=== PATIENT | male | born 1935 | race Caucasian/White ===

== ENCOUNTER → 2016-09-25 | Outpatient (CLI) | payer BC ==
[~2016-09-25] MED LIST: ACET325T96 PO; ALPR-411 PO; ASCO500T16 PO; B-COTAB18 PO; CALC-214 PO; CALCIUM/MAGNESIUM PO; CHOL1TAB PO; COEN1CAP46 PO; DXY100 PO; FLEC50TA20 PO; METO25TA3 PO; SAW160TA PO; VITA400C15 PO; ZNTT/150 PO
--- NOTE | 2016-09-25 11:38 | DIAGNOSTIC IMAGING REPORT ---
C-SPINE ROUTINE 4 OR 5 VIEWS CLINICAL HISTORY: Right upper extremity paresthesias COMPARISON STUDY: 11/16/2010, 02/09/2010 FINDINGS: The prevertebral soft tissues are normal. No fractures or subluxations are visualized. No calcifications are felt to be secondary to atherosclerotic carotid calcification. There are degenerative changes at the C5-6 and C6-7 levels. IMPRESSION: 1. Degenerative changes the C5-6 and C6-7 levels 2. No fractures subluxations or destructive lesions are visualized Electronically signed by: Deshuan Piña M.D. 09/25/2016 11:36 AM Dictated Date/Time: 09/25/2016 11:35 AM
== END | disposition home or self-care (01) ==
LOC: C.RAD1850 11:08
PROVIDERS: ATTEND Internal Medicine
DX: R20.2 Paresthesia of skin (principal)

== ENCOUNTER → 2016-11-04 | Outpatient (CLI) | payer BC ==
--- NOTE | 2016-11-04 16:01 | DIAGNOSTIC IMAGING REPORT ---
RIGHT RIBS UNILATERAL WITH PA CHEST CLINICAL HISTORY: COUGH/ R35.0 Right dyspnea COMPARISON STUDY: None FINDINGS: Negative right ribs. Negative chest. IMPRESSION: Negative study Electronically signed by: Kevin Pennington M.D. 11/04/2016 4:00 PM Dictated Date/Time: 11/04/2016 3:59 PM
[2016-11-04 16:54] LABS: URINE APPEARANCE CLEAR (CLEAR); URINE BILIRUBIN NEG (NEG); URINE COLOR YELLOW; URINE NITRITE NEG (NEG); URINE SPECIFIC GRAVITY 1.014 (1.000-1.030); UROBILINOGEN NEG (NEG)
[2016-11-04 16:58] LABS: MANUAL MICROSCOPIC REQUIRED? NO; REVIEW REQ? NO
== END | disposition home or self-care (01) ==
LOC: C.RADBC 15:34
PROVIDERS: ATTEND Internal Medicine Geriatric Medicine
DX: R05 Cough (principal); R35.0 Frequency of micturition

== ENCOUNTER → 2017-02-18 | Outpatient (CLI) | payer BC ==
[2017-02-18 11:13] LABS: HEMATOCRIT 43.3 % (42-52); MEAN CELL VOLUME 95.6 fL (80-100); MEAN CORPUSCULAR HEMOGLOBIN 29.6 pg (25-34); MEAN CORPUSCULAR HGB CONC 30.9 g/dl (32-36); MEAN PLATELET VOLUME 12.1 fL (7.4-10.4); PLATELET COUNT 145 K/uL (130-400); RED BLOOD COUNT 4.53 M/uL (4.7-6.1); WHITE BLOOD COUNT 4.06 K/uL (4.8-10.8)
[2017-02-18 11:34] LABS: ALT/SGPT 22 U/L (12-78); BLOOD UREA NITROGEN 22 mg/dl (7-18); BUN/CREATININE RATIO 22.1 (10-20); CALCIUM 9.4 mg/dl (8.5-10.1); CARBON DIOXIDE 31 mmol/L (21-32); CHLORIDE 108 mmol/L (98-107); CHOLESTEROL 162 mg/dl (0-200); CREATININE 0.98 mg/dl (0.60-1.40); GLUCOSE 86 mg/dl (70-99); POTASSIUM 4.1 mmol/L (3.5-5.1); SODIUM 144 mmol/L (136-145); TRIGLYCERIDES 101 mg/dl (0-150); VERY LOW DENSITY LIPOPROT CALC 20 mg/dl
[2017-02-18 11:46] LABS: AST/SGOT 17 U/L (15-37); CHOLESTEROL/HDL RATIO 2.5; HDL CHOLESTEROL 64 mg/dl; LDL CHOLESTEROL CALCULATED 78 mg/dl
== END | disposition home or self-care (01) ==
LOC: C.LABBC 07:37
PROVIDERS: ATTEND Internal Medicine
DX: I10 Essential (primary) hypertension (principal); I48.0 Paroxysmal atrial fibrillation; I49.3 Ventricular premature depolarization; R35.0 Frequency of micturition

== ENCOUNTER 2017-05-14 09:27 | Emergency (ER) | payer BC ==
[~2017-05-14] VITALS: Ht 170.2 cm; Wt 75.2 kg
[~2017-05-14 09:27] MED LIST changes: -ACET325T96 PO; -ALPR-411 PO; -CALCIUM/MAGNESIUM PO
[2017-05-14 09:36] VITALS: Ht 170.2 cm; Wt 75.2 kg
--- NOTE | 2017-05-14 10:06 | DIAGNOSTIC IMAGING REPORT ---
CHEST ONE VIEW PORTABLE CLINICAL HISTORY: 81 years-old Male presenting with irregular heart beat. TECHNIQUE: Portable upright AP view of the chest was obtained. COMPARISON: 06/10/2016. FINDINGS: Atherosclerosis of the aortic arch. Chronic silhouette normal in size. Prominence of retrocardiac vascular markings, unchanged. Lungs and pleural spaces clear. Osseous structures normal. Upper abdomen normal. IMPRESSION: 1. No acute cardiopulmonary disease. Electronically signed by: Carl Suh M.D. 05/14/2017 10:05 AM Dictated Date/Time: 05/14/2017 10:04 AM
[2017-05-14 10:16] LABS: HEMATOCRIT 44.5 % (42-52); MEAN CELL VOLUME 94.3 fL (80-100); MEAN CORPUSCULAR HEMOGLOBIN 30.1 pg (25-34); MEAN CORPUSCULAR HGB CONC 31.9 g/dl (32-36); MEAN PLATELET VOLUME 11.5 fL (7.4-10.4); PLATELET COUNT 152 K/uL (130-400); RED BLOOD COUNT 4.72 M/uL (4.7-6.1); WHITE BLOOD COUNT 3.34 K/uL (4.8-10.8)
[2017-05-14 10:26] LABS: PARTIAL THROMBOPLASTIN RATIO 1.1; PROTHROMBIN TIME (PATIENT) 10.9 SECONDS (9.0-12.0)
[2017-05-14] MEDS ORDERED: CALCIUM/MAGNESIUM PO (10:30)
[2017-05-14] MEDS ORDERED: ALPR-411 PO (10:32)
[2017-05-14 10:33] LABS: BUN/CREATININE RATIO 18.2 (10-20); CALCIUM 9.1 mg/dl (8.5-10.1); CREATININE 0.89 mg/dl (0.60-1.40); POTASSIUM 4.2 mmol/L (3.5-5.1)
[2017-05-14] MEDS ORDERED: ACET325T96 PO (10:33)
[2017-05-14 11:25] VITALS: BP 161/91; PULSE 87; TEMP 36.8; O2SAT 95
--- NOTE | 2017-05-14 11:26 | EMERGENCY ROOM VISIT NOTE ---
History Report prepared by Carol: Robyn Andujar Under the Supervision of: Dr. Max Mccord D.O. First contact with patient: 10:58 Chief Complaint: IRREGULAR HEARTBEAT Stated Complaint: IRREGULAR HEARTBEAT, SOB Nursing Triage Summary: triage not; pt reports "i felt like i have had an irregular heart beat for weeks." pt continues "everytime i eat or drink something it goes to gas." pt states "sometimes where i breathe i have a stabbing pain in my chest and sometimes i have a heaviness." History of Present Illness The patient is an 81 year old male who presents to the Emergency Room with complaints of an intermittent irregular heartbeat that began a week and a half ago. The patient reports a history of atrial fibrillation. He states that he intermittently feels palpitations or his heart skipping a beat. The patient additionally reports intermittent heaviness in his chest. The patient notes increased gas when eating or drinking anything. He reports a low-grade fever and a post nasal drip. Yesterday, he reports a stabbing pain in the left side of his chest. Source of History: patient Onset: week and a half ago Position: other Quality: other (irregular heartbeat) Timing: intermittent Associated Symptoms: + fevers (low-grade), + chest pain (heaviness, stabbing ) Note: Associated Symptoms: post nasal drip, increased gas with eating and drinking, palpitations, skipping a beat Review of Systems See HPI for pertinent positives & negatives. A total of 10 systems reviewed and were otherwise negative. Past Medical & Surgical Medical Problems: (1) Anxiety (2) Appendicitis (3) Arthritis (4) Asthma (5) Atrial fibrillation (6) Atrial fibrillation with RVR (7) Cholecystectomy (8) Gastroesophageal reflux disease (9) Total replacement of hip Family History No significant family history Social History Smoking Status: Former Smoker Alcohol Use: none Drug Use: none Marital Status: Housing Status: lives with significant other Occupation Status: retired Current/Historical Medications Scheduled Acetaminophen Tab (Tylenol), 325 MG PO UD Ascorbic Acid (Ascorbic Acid), 500 MG PO TID B-Complex Vitamins (Vitamin B Complex), 1 TAB PO BID Cholecalciferol (Thera-D 4000), 4,000 UNITS PO QAM Coenzyme Q10 (Ubidecarenone) (Coq-10 100 mg), 100 MG PO QAM Flecainide (Tambocor), 50 MG PO Q12 Metoprolol Succinate (Toprol Xl), 12.5 MG PO HS Ranitidine (Zantac), 150 MG PO BID Saw [place] (Serenoa Repens) (Saw [place]), 160 MG PO BID Tocopheryl Acet,Dl-Alpha (Vitamin E), 400 INTER.UNIT PO 1200 [Calcium/Magnesium ], 1 TSP PO BID Scheduled PRN Alprazolam (Xanax), 0 PO Q6H PRN for Anxiety/Agitation Allergies Coded Allergies: Codeine (Verified Allergy, Unknown, 05/14/17) Latex1 -Allergic Contact Dermititis (Verified Allergy, Unknown, WELTS, RASH, 05/14/17) Morphine (Verified Allergy, Unknown, DELIRIUM, 05/14/17) Lactose. (Verified Adverse Reaction, Intermediate, GI SYMPTOMS, 05/14/17) Oxycodone (Verified Adverse Reaction, Intermediate, N/V, 05/14/17) Wheat (Verified Adverse Reaction, Intermediate, GI SYMPTOMS, 05/14/17) Penicillins (Verified Adverse Reaction, Unknown, DELIRIOUS, 05/14/17) Sulfa Drugs (Verified Adverse Reaction, Unknown, DELIRIOUS, 05/14/17) Physical Exam Vital Signs Date Time Temp Pulse Resp B/P (MAP) Pulse Ox O2 Delivery O2 Flow Rate FiO2 05/14/17 10:58 51 05/14/17 10:57 53 20 95 05/14/17 09:44 96 Room Air 05/14/17 09:36 36.8 56 18 152/75 96 Room Air Physical Exam CONSTITUTIONAL/VITAL SIGNS: Reviewed / noted above. GENERAL: Non-toxic in appearance. INTEGUMENTARY: Warm, dry, and [place]. HEAD: Normocephalic. EYES: without scleral icterus or trauma. ENT/OROPHARYNX: clear and moist. LYMPHADENOPATHY/NECK: Is supple without lymphadenopathy or meningismus. RESPIRATORY: Lungs clear and equal. CARDIOVASCULAR: Regular rate and slightly irregular rhythm. GI/ABDOMEN: Soft and nontender. No organomegaly or pulsatile mass. No rebound or guarding. Normal bowel sounds. EXTREMITIES: Warm and well perfused. BACK: No CVA tenderness. NEUROLOGICAL: Intact without focal deficits. PSYCHIATRIC: normal affect. MUSCULOSKELETAL: Normally developed with good muscle tone. TRIAGE NURSING DOCUMENTATION REVIEWED. Medical Decision & Procedures ER Provider Diagnostic Interpretation: X ray results and stated below per my interpretation and radiology interpretation. CHEST ONE VIEW PORTABLE CLINICAL HISTORY: 81 years-old Male presenting with irregular heart beat. TECHNIQUE: Portable upright AP view of the chest was obtained. COMPARISON: 06/10/2016. FINDINGS: Atherosclerosis of the aortic arch. Chronic silhouette normal in size. Prominence of retrocardiac vascular markings, unchanged. Lungs and pleural spaces clear. Osseous structures normal. Upper abdomen normal. IMPRESSION: 1. No acute cardiopulmonary disease. Electronically signed by: Carl Suh M.D. 05/14/2017 10:05 AM Dictated Date/Time: 05/14/2017 10:04 AM Laboratory Results 05/14/17 09:35 05/14/17 09:35 Test 05/14/17 09:35 05/14/17 10:03 Red Blood Count 4.72 M/uL (4.7-6.1) Mean Corpuscular Volume 94.3 fL (80-100) Mean Corpuscular Hemoglobin 30.1 pg (25-34) Mean Corpuscular Hemoglobin Concent 31.9 g/dl (32-36) RDW Standard Deviation 46.3 fL (36.4-46.3) RDW Coefficient of Variation 13.5 % (11.5-14.5) Mean Platelet Volume 11.5 fL (7.4-10.4) Prothrombin Time 10.9 SECONDS (9.0-12.0) Prothromb Time International Ratio 1.0 (0.9-1.1) Activated Partial Thromboplast Time 27.3 SECONDS (21.0-31.0) Partial Thromboplastin Ratio 1.1 Anion Gap 3.0 mmol/L (3-11) Est Creatinine Clear Calc Drug Dose 61.9 ml/min Estimated GFR () 93.6 Estimated GFR (Non- 80.8 BUN/Creatinine Ratio 18.2 (10-20) Calcium Level 9.1 mg/dl (8.5-10.1) Total Bilirubin 0.6 mg/dl (0.2-1) Aspartate Amino Transf (AST/SGOT) 21 U/L (15-37) Alanine Aminotransferase (ALT/SGPT) 22 U/L (12-78) Alkaline Phosphatase 50 U/L (45-117) Total Creatine Kinase 63 U/L (39-308) Creatine Kinase MB 0.6 ng/ml (0.5-3.6) Creatine Kinase MB Ratio 1.0 (0-3.0) Total Protein 7.3 gm/dl (6.4-8.2) Albumin 3.7 gm/dl (3.4-5.0) Globulin 3.6 gm/dl (2.5-4.0) Albumin/Globulin Ratio 1.0 (0.9-2) Bedside Troponin I < 0.030 ng/ml (0-0.045) Laboratory results as stated above per my review. ECG Indication: palpitations Rate (beats per minute): 61 Rhythm: normal sinus Findings: PAC, no acute ischemic change, no ectopy ED Course 1058: Previous medical records were reviewed. The patient was evaluated in room A10. A complete history and physical examination was performed. I discussed the exam findings with him and I discussed the treatment plan. He verbalized complete understanding and agreement. The patient is ready to go home shortly. Medical Decision Differentials considered include acute myocardial infarction, acute coronary syndrome, myocarditis, pericarditis, pericardial effusions /tamponade, esophageal perforation, thoracic aortic dissection, pulmonary embolism, pneumonia, pneumothorax, pancreatitis, shingles, acute cholecystitis, and perforated abdominal viscus. This is an 81-year-old male who presents to the ED with a chief complaint of palpitations. The patient states that he has had the symptoms for about a week and a half. He states that he skips a beat periodically. He also reported having a fever last night. He states that his temperature was 99.4. The patient denies any other symptoms. Denies any shortness of breath, chest pains , palpitations, recent illness. He has a normal exam. His CBC, complete metabolic panel and troponin are negative. Chest x-ray did not show acute disease. EKG shows a sinus rhythm with a rate of 61 with PACs. The patient was told results the test. He is felt to be stable for discharge. He was referred back to his PCP for recheck of his blood pressure and continuation of evaluation for his PACs. He has seen Dr. Trujillo for PAC's in the past. Medication Reconcilliation Current Medication List: was personally reviewed by me Impression Primary Impression: Palpitations Additional Impression: Premature atrial complexes Scribe Attestation The scribe's documentation has been prepared under my direction and personally reviewed by me in its entirety. I confirm that the note above accurately reflects all work, treatment, procedures, and medical decision making performed by me. Departure Information Referrals No Doctor, Assigned (PCP) Patient Instructions My [facility] Additional Instructions Your EKG today shows premature atrial contractions. Talk to your doctor about this. Problem Qualifiers
== END 2017-05-14 11:25 | disposition home or self-care (01) ==
LOC: C.EDB 09:29 → C.EDA 11:25
DX: R00.2 Palpitations (principal); I49.1 Atrial premature depolarization; I48.91 Unspecified atrial fibrillation; F41.9 Anxiety disorder, unspecified; J45.909 Unspecified asthma, uncomplicated; M19.90 Unspecified osteoarthritis, unspecified site; K21.9 Gastro-esophageal reflux disease without esophagitis; Z90.49 Acquired absence of other specified parts of digestive tract; Z96.649 Presence of unspecified artificial hip joint; Z87.891 Personal history of nicotine dependence; Z79.899 Other long term (current) drug therapy

== ENCOUNTER 2017-09-14 09:17 | Emergency (ER) | payer BC, OTHER ==
[~2017-09-14] VITALS: Ht 170.2 cm; Wt 74.5 kg
[~2017-09-14 09:17] MED LIST changes: +ACET325T96 PO; +ALPR-411 PO; -CALC-214 PO; +CALCIUM/MAGNESIUM PO; -DXY100 PO; +PRED20TA PO
[2017-09-14 09:26] VITALS: TEMP 36.9; Ht 170.2 cm; Wt 74.5 kg
[2017-09-14] MEDS ORDERED: BENZONATATE 100MG CAP PO ONE (09:45)
[2017-09-14] MEDS ORDERED: IBUPROFEN 200 MG TAB PO STA (09:45)
[2017-09-14] MEDS ORDERED: COUGH DROP (SUGAR FREE) LOZ 24 LOZ/1 BOX PO STA (09:45)
[2017-09-14] MEDS ORDERED: ACETAMINOPHEN 500 MG TAB PO STA (09:45)
[2017-09-14] MEDS ORDERED: COEN1TAB3 PO (10:25)
[2017-09-14] MEDS ORDERED: VTME400 PO (10:25)
[2017-09-14 10:28] VITALS: BP 123/57; PULSE 57; O2SAT 94
--- NOTE | 2017-09-14 10:29 | DIAGNOSTIC IMAGING REPORT ---
CHEST ONE VIEW PORTABLE HISTORY: cough COMPARISON: Chest 05/14/2017. FINDINGS: The lungs are clear. Cardiac silhouette is normal in size. No pleural effusions. No pneumothorax. IMPRESSION: No acute process. Electronically signed by: Lazaro Mendoza M.D. 09/14/2017 10:27 AM Dictated Date/Time: 09/14/2017 10:27 AM
[2017-09-14 10:45] LABS: INFLUENZA B ANTIGEN Neg for Influ B (NEG)
[2017-09-14] MEDS ORDERED: BENZ100C18 PO (11:59)
--- NOTE | 2017-09-14 12:01 | EMERGENCY ROOM VISIT NOTE ---
History Report prepared by Carol: Jimena Vargas Under the Supervision of: Dr. Todd Ramirez M.D. First contact with patient: 09:35 Chief Complaint: FLU LIKE SX Stated Complaint: SORE THROAT,GLANDS ARE SORE, WHEEZING,COUGH History of Present Illness The patient is an 82 year old white male with a past medical history of atrial fibrillation, anxiety, asthma, and GERD who presents to the ED with a cc of worsening flu-like symptoms beginning a week ago. Positive sore throat, cough, swollen glands, and wheezing. Negative blood thinners. He notes that he took Tylenol last night with no relief. He reports that he has been having difficulty sleeping because of his cough. He reports that it has made him wheezy and he has been taking his inhaler with little relief. The patient reports going into a walk in clinic yesterday and getting a Z-Pack. Source of History: patient Onset: a week ago Position: other (global) Quality: other (flu-like) Timing: worsening Modifying Factors (Relieving): tylenol, other (inhaler) Associated Symptoms: + sorethroat, + cough Note: The patient complains of swollen glands and wheezing. Review of Systems See HPI for pertinent positives and negatives. A total of ten systems were reviewed and were otherwise negative. Past Medical & Surgical Medical Problems: (1) Anxiety (2) Appendicitis (3) Arthritis (4) Asthma (5) Atrial fibrillation (6) Atrial fibrillation with RVR (7) Cholecystectomy (8) Gastroesophageal reflux disease (9) Total replacement of hip Family History No significant family history Social History Smoking Status: Former Smoker Alcohol Use: none Drug Use: none Marital Status: Housing Status: lives with significant other Occupation Status: retired Current/Historical Medications Scheduled Ascorbic Acid (Ascorbic Acid), 500 MG PO TID B-Complex Vitamins (Vitamin B Complex), 1 TAB PO BID Benzonatate (Tessalon Perles), 100 MG PO TID Cholecalciferol (Thera-D 4000), 4,000 UNITS PO QAM Coenzyme Q10 (Ubidecarenone) (Coenzyme Q10), 100 MG PO DAILY Flecainide (Tambocor), 50 MG PO Q12 Metoprolol Succinate (Toprol Xl), 12.5 MG PO HS Saw [place] (Serenoa Repens) (Saw [place]), 160 MG PO BID Tocopheryl Acet,Dl-Alpha (Vitamin E/Dl-Alpha), 400 UNITS PO DAILY Scheduled PRN Ranitidine (Zantac), 150 MG PO BID PRN for Indigestion Allergies Coded Allergies: Codeine (Verified Allergy, Unknown, 09/14/17) Latex1 -Allergic Contact Dermititis (Verified Allergy, Unknown, WELTS, RASH, 09/14/17) Morphine (Verified Allergy, Unknown, DELIRIUM, 09/14/17) Lactose. (Verified Adverse Reaction, Intermediate, GI SYMPTOMS, 09/14/17) Oxycodone (Verified Adverse Reaction, Intermediate, N/V, 09/14/17) Wheat (Verified Adverse Reaction, Intermediate, GI SYMPTOMS, 09/14/17) Penicillins (Verified Adverse Reaction, Unknown, DELIRIOUS, 09/14/17) Sulfa Drugs (Verified Adverse Reaction, Unknown, DELIRIOUS, 09/14/17) Physical Exam Vital Signs Date Time Temp Pulse Resp B/P (MAP) Pulse Ox O2 Delivery O2 Flow Rate FiO2 09/14/17 10:28 57 18 123/57 94 Room Air 09/14/17 09:26 36.9 66 20 111/62 94 Room Air Physical Exam GENERAL: Awake, alert, well-appearing, NAD HENT: Normocephalic, atraumatic. Posterior pharynx clear. False maxillary teeth. EYES: Normal conjunctiva. Sclera non-icteric. NECK: Supple. No nuchal rigidity. FROM. No stridulous. RESPIRATORY: CTAB, no rhonchi, wheezing, crackles CARDIAC: RRR, no MRG ABDOMEN: Soft, NTND, BS+ MSK: No chest wall TTP, no LE edema NEURO: GCS 15, CN 2-12 intact, moves all 4s on command SKIN: No rash or jaundice noted. Medical Decision & Procedures ER Provider Diagnostic Interpretation: Radiology results as stated below per my review and radiologist interpretation: CHEST ONE VIEW PORTABLE HISTORY: cough COMPARISON: Chest 05/14/2017. FINDINGS: The lungs are clear. Cardiac silhouette is normal in size. No pleural effusions. No pneumothorax. IMPRESSION: No acute process. Electronically signed by: Lazaro Mendoza M.D. 09/14/2017 10:27 AM Dictated Date/Time: 09/14/2017 10:27 AM Laboratory Results Test 09/14/17 10:15 09/14/17 11:13 Influenza Type A Antigen Neg for Influ A (NEG) Influenza Type B Antigen Neg for Influ B (NEG) Bedside Glucose 90 mg/dl (70-99) Laboratory results reviewed by me Medications Administered Medications (Trade) Dose Ordered Sig/Osvaldo Route Start Time Stop Time Status Last Admin Dose Admin Ibuprofen (Advil Tab) 400 mg NOW STAT PO 09/14/17 09:45 09/14/17 09:46 DC 09/14/17 10:25 400 MG Acetaminophen (Tylenol Tab) 1,000 mg NOW STAT PO 09/14/17 09:45 09/14/17 09:46 DC 09/14/17 10:25 1,000 MG Menthol (Nice [place]) 1 marco NOW STAT PO 09/14/17 09:45 09/14/17 09:46 DC 09/14/17 10:25 1 MARCO Benzonatate (Tessalon Perles Cap) 100 mg NOW ONCE PO 09/14/17 09:45 09/14/17 09:46 DC 09/14/17 10:26 100 MG ED Course 0939: The patient was evaluated in room B10. A complete history and physical exam was performed. 1144: I reevaluated the patient. Discussed results and discharge instructions: he verbalized understanding and agreement. The patient is ready for discharge. Medical Decision The patient is an 82 year old white male with a past medical history of atrial fibrillation, anxiety, asthma, and GERD who presents to the ED with a cc of worsening flu-like symptoms beginning a week ago. Etiologies such as viral syndrome, tonsillitis, streptococcal pharyngitis, mononucleosis, peritonsillar abscess, retropharyngeal abscess, otitis, pneumonia , influenza, as well as others were entertained. Patient was seen and evaluated the bedside. Patient is a prior history of A. fib for which he takes flecainide. Patient does not take any blood thinning medications. He is elected not to use those medicines. Patient was complaining of some sore throat. I did discuss with the patient that completely blood work with and a whole lot of value given the patient is very well-appearing and a stable vital signs. Patient did have a chest x-ray. Patient's chest x-ray shows stable cardiomegaly no overt signs of infection. Patient did have a repeat blood sugar as he was concerned that he checked it this morning it was greater than 180. Repeat value < 100. I did offer him a short course of steroids however he declined. Patient was given Tessalon Perles and Cepacol. Patient did state the Tessalon did help. Patient was given a prescription for Tessalon Perles. I believe the patient is suitable for outpatient follow-up and treatment at this time. Patient was given strict follow-up, discharge, and return precautions. All questions were answered. Patient was deemed suitable for outpatient follow-up at this time. Patient agreed with the plan of care and was safely discharged home. The chart was completed utilizing [employer] voice recognition software. Grammatical errors, random word insertions, pronoun errors, and incomplete sentences are an occasional consequence of this system due to software limitations, ambient noise, and hardware issues. Any formal questions or concerns about the content, text, or information contained within the body of this dictation should be directly addressed to the physician for clarification. Medication Reconcilliation Current Medication List: was personally reviewed by me Blood Pressure Screening Patient's blood pressure: Normal blood pressure Blood pressure disposition: Did not require urgent referral Impression Primary Impression: Sore throat Additional Impression: URI (upper respiratory infection) Scribe Attestation The scribe's documentation has been prepared under my direction and personally reviewed by me in its entirety. I confirm that the note above accurately reflects all work, treatment, procedures, and medical decision making performed by me. Departure Information Dispostion Home / Self-Care Prescriptions Benzonatate (TESSALON PERLES) 100 Mg Cap 100 MG PO TID, #15 CAP Prov: oTdd Ramirez M.D. 09/14/17 Referrals No Doctor, Assigned (PCP) Forms HOME CARE DOCUMENTATION FORM, IMPORTANT VISIT INFORMATION Patient Instructions ED Upper Resp Infec No Abx Tx, My [facility], Sore Throat - [facility], Sore Throats Self Care Additional Instructions Please return to the emergency department if you have worsening or recurrent symptoms not amenable to at-home treatment. Please call for a follow-up appointment with her primary care physician. Please take your medications as prescribed. If you have other concerns and/or complaints please feel free to also call your primary care physician's office or return the ED for further evaluation, management, and treatment. You may try additional [id number] remedies for your sore throat. You may take an occasional Motrin or Advil. You may take motrin 200 mg every 6 hours for sore throat. You may take tylenol 650 mg every 6 hours as needed for pain. Take your medications as prescribed. If taking an antibiotic consider taking a probiotic and/or eating yogurt, but at the least, please take with food as it can cause upset stomach. If culture results are not available at discharge, if they are positive for concern of infection, you will be informed of the results as soon as they are available. If you were seen between 11pm and 7AM all radiology reads will be re-read by our in house staff. If any major discrepancies are discovered, you will be notified. You have been examined and treated today on an emergency basis only. This is not a substitute for, or an effort to provide, complete comprehensive medical care. It is impossible to recognize and treat all injuries or illnesses in a single emergency department visit. It is therefore important that you follow up closely with [facility], your PCP, and/or your specialist(s). Call as soon as possible for an appointment. Thank you for your time and consideration. I look forward to speaking with you again soon. Please don't hesitate to call us if you have any questions. Problem Qualifiers Additional Impression: URI (upper respiratory infection) URI type: acute pharyngitis Pharyngitis/tonsillitis etiology: unspecified etiology Qualified Codes: J02.9 - Acute pharyngitis, unspecified
== END 2017-09-14 12:12 | disposition home or self-care (01) ==
LOC: C.EDB 09:20
DX: J02.9 Acute pharyngitis, unspecified (principal); J45.909 Unspecified asthma, uncomplicated; I48.91 Unspecified atrial fibrillation; Z90.49 Acquired absence of other specified parts of digestive tract; Z96.649 Presence of unspecified artificial hip joint; Z79.899 Other long term (current) drug therapy

== ENCOUNTER 2017-09-17 00:11 | Emergency (ER) | payer OTHER ==
[~2017-09-17] VITALS: Ht 170.2 cm; Wt 74.7 kg
[~2017-09-17 00:11] MED LIST changes: -ACET325T96 PO; -ALPR-411 PO; +BENZ100C18 PO; -CALCIUM/MAGNESIUM PO; -COEN1CAP46 PO; +COEN1TAB3 PO; -VITA400C15 PO; +VTME400 PO
[2017-09-17 00:15] VITALS: TEMP 36.9; Ht 170.2 cm; Wt 74.7 kg
[2017-09-17 00:33] VITALS: O2SAT 92
[2017-09-17] MEDS ORDERED: METHYLPREDNISOLONE 125 MG VIAL IV STA (00:49)
[2017-09-17] MEDS ORDERED: ALBUT/IPRATROP 3MG/0.5MG NEB 3 ML VIAL INH STA (00:49)
--- NOTE | 2017-09-17 00:51 | EMERGENCY ROOM VISIT NOTE ---
History Report prepared by Carol: Connie Vaughan Under the Supervision of: Dr. Renetta Raygoza D.O. First contact with patient: 00:21 Chief Complaint: RESPIRATORY PROBLEMS Stated Complaint: WHEEZING,SHORT OF BREATH,COUGHING UP WHITE MUCOUS History of Present Illness The patient is an 82 year old male who presents to the Emergency Room with complaints of a constant cough beginning about two weeks ago. The patient reports wheezing and coughing up white mucus when he eats food. He denies any fever. The patient was seen in the ED on Friday, three days ago, and was put on 20 mg of prednisone for this symptoms. He reports taking a dose of his prednisone about three hours ago. He notes he has not been able to sleep for the past couple days because his cough is keeping him up. The patient has not been to his PCP for these symptoms. He reports using and inhaler with minimal relief. The patient denies any history of COPD or asthma. The patient recently had a pulmonary function test which was unremarkable. He has a history of chronic rhinitis. The patient started taking flecainide three years ago for his atrial fibrillation. The patient also takes Metoprolol for his high blood pressure. Source of History: patient Onset: two weeks ago Position: other (generalized) Quality: other (cough) Timing: constant Associated Symptoms: + cough, No fevers Review of Systems See HPI for pertinent positives & negatives. A total of 10 systems reviewed and were otherwise negative. Past Medical & Surgical Medical Problems: (1) Anxiety (2) Appendicitis (3) Arthritis (4) Asthma (5) Atrial fibrillation (6) Atrial fibrillation with RVR (7) Cholecystectomy (8) Gastroesophageal reflux disease (9) Total replacement of hip Family History No significant family history Social History Smoking Status: Former Smoker Alcohol Use: none Drug Use: none Marital Status: Housing Status: lives with significant other Occupation Status: retired Current/Historical Medications Scheduled Ascorbic Acid (Ascorbic Acid), 500 MG PO TID B-Complex Vitamins (Vitamin B Complex), 1 TAB PO BID Benzonatate (Tessalon Perles), 100 MG PO TID Cholecalciferol (Thera-D 4000), 4,000 UNITS PO QAM Coenzyme Q10 (Ubidecarenone) (Coenzyme Q10), 100 MG PO DAILY Flecainide (Tambocor), 50 MG PO Q12 Metoprolol Succinate (Toprol Xl), 12.5 MG PO HS Prednisone (Prednisone), 1 TAB PO DAILY [employer] ([place]) ([employer]), 160 MG PO BID Tocopheryl Acet,Dl-Alpha (Vitamin E/Dl-Alpha), 400 UNITS PO DAILY Scheduled PRN Ranitidine (Zantac), 150 MG PO BID PRN for Indigestion Allergies Coded Allergies: Codeine (Verified Allergy, Unknown, 09/17/17) Latex1 -Allergic Contact Dermititis (Verified Allergy, Unknown, WELTS, RASH, 09/17/17) Morphine (Verified Allergy, Unknown, DELIRIUM, 09/17/17) Lactose. (Verified Adverse Reaction, Intermediate, GI SYMPTOMS, 09/17/17) Oxycodone (Verified Adverse Reaction, Intermediate, N/V, 09/17/17) Wheat (Verified Adverse Reaction, Intermediate, GI SYMPTOMS, 09/17/17) Penicillins (Verified Adverse Reaction, Unknown, DELIRIOUS, 09/17/17) Sulfa Drugs (Verified Adverse Reaction, Unknown, DELIRIOUS, 09/17/17) Physical Exam Vital Signs Date Time Temp Pulse Resp B/P (MAP) Pulse Ox O2 Delivery O2 Flow Rate FiO2 09/17/17 02:40 70 20 135/58 95 Room Air 09/17/17 01:53 75 20 144/59 94 Room Air 09/17/17 00:35 66 22 125/55 95 Room Air 09/17/17 00:33 95 Room Air 09/17/17 00:33 92 Room Air 09/17/17 00:28 71 09/17/17 00:15 36.9 75 16 143/80 93 Room Air Physical Exam General: The patient appears in no respiratory distress but he has a persistent cough HEENT: Head - normocephalic and atraumatic Pupils are equal, round, and reactive to light. Extraocular eye muscles are intact, and sclera are anicteric. Nose - moist nasal mucosa without discharge. Mouth - moist buccal mucosa. Oropharynx is nonerythematous and there is no tonsillar exudate or edema noted. Neck: Supple; no JVD, nuchal rigidity, cervical lymphadenopathy. Heart: Regular rate and rhythm. There is a normal S1 and S2 with no murmurs, clicks, or gallops appreciated. Lungs: Inspiratory and expiratory wheezes in all lung vigil. No rales or rhonchi. Abdomen: Soft, completely nontender, nondistended, with good bowel sounds. There are no palpable pulsatile masses or hepatosplenomegaly. There is no guarding, rigidity, or rebound noted. Extremities: No evidence of cyanosis, clubbing, or edema. There are easily palpable peripheral pulses. Skin: warm and dry with good turgor and no rashes. Medical Decision & Procedures ER Provider Diagnostic Interpretation: Radiology results as stated below per my review: Chest X-ray: mild atelectasis at left lung base, no pulmonary infiltrate or pleural effusion. Laboratory Results 09/17/17 01:00 Red Blood Count 4.29, Mean Corpuscular Volume 92.5, Mean Corpuscular Hemoglobin 30.8, Mean Corpuscular Hemoglobin Concent 33.2, Mean Platelet Volume 11.7, Neutrophils (%) (Auto) 78.6, Lymphocytes (%) (Auto) 12.2, Monocytes (%) (Auto) 7.9, Eosinophils (%) (Auto) 0.6, Basophils (%) (Auto) 0.4, Neutrophils # (Auto) 6.13, Lymphocytes # (Auto) 0.95, Monocytes # (Auto) 0.62, Eosinophils # (Auto) 0.05, Basophils # (Auto) 0.03 09/17/17 01:00 Test 09/17/17 01:00 White Blood Count 7.80 K/uL (4.8-10.8) Red Blood Count 4.29 M/uL (4.7-6.1) Hemoglobin 13.2 g/dL (14.0-18.0) Hematocrit 39.7 % (42-52) Mean Corpuscular Volume 92.5 fL (80-100) Mean Corpuscular Hemoglobin 30.8 pg (25-34) Mean Corpuscular Hemoglobin Concent 33.2 g/dl (32-36) Platelet Count 114 K/uL (130-400) Mean Platelet Volume 11.7 fL (7.4-10.4) Neutrophils (%) (Auto) 78.6 % Lymphocytes (%) (Auto) 12.2 % Monocytes (%) (Auto) 7.9 % Eosinophils (%) (Auto) 0.6 % Basophils (%) (Auto) 0.4 % Neutrophils # (Auto) 6.13 K/uL (1.4-6.5) Lymphocytes # (Auto) 0.95 K/uL (1.2-3.4) Monocytes # (Auto) 0.62 K/uL (0.11-0.59) Eosinophils # (Auto) 0.05 K/uL (0-0.5) Basophils # (Auto) 0.03 K/uL (0-0.2) RDW Standard Deviation 44.6 fL (36.4-46.3) RDW Coefficient of Variation 13.3 % (11.5-14.5) Immature Granulocyte % (Auto) 0.3 % Immature Granulocyte # (Auto) 0.02 K/uL (0.00-0.02) Anion Gap 4.0 mmol/L (3-11) Est Creatinine Clear Calc Drug Dose 51.1 ml/min Estimated GFR () 75.9 Estimated GFR (Non- 65.5 BUN/Creatinine Ratio 24.6 (10-20) Calcium Level 8.6 mg/dl (8.5-10.1) Laboratory results per my review. Medications Administered Medications (Trade) Dose Ordered Sig/Osvaldo Route Start Time Stop Time Status Last Admin Dose Admin Albuterol/ Ipratropium (Duoneb) 3 ml NOW STAT INH 09/17/17 00:49 09/17/17 00:51 DC 09/17/17 01:02 3 ML Methylprednisolone Sodium Succinate (Solu-Medrol IV) 125 mg NOW STAT IV 09/17/17 00:49 09/17/17 00:51 DC 09/17/17 01:01 125 MG Albuterol/ Ipratropium (Combivent Respimat Inh) 2 puffs NOW STAT INH 09/17/17 02:13 09/17/17 02:14 DC 09/17/17 02:43 2 PUFFS Lidocaine HCl (Viscous Lidocaine 2% Soln) 10 ml NOW STAT PO 09/17/17 02:46 09/17/17 02:47 DC 09/17/17 03:02 10 ML Al Hydroxide/Mg Hydroxide (Maalox Susp) 30 ml NOW STAT PO 09/17/17 02:46 09/17/17 02:47 DC 09/17/17 03:02 30 ML Procedure Duoneb INH, Solu-Medrol IV, Albuterol/Ipratropium INH. ECG Indication: SOB/dyspnea Rate (beats per minute): 66 Rhythm: normal sinus Findings: no acute ischemic change, no ectopy ED Course 0035: Past medical records reviewed. The patient was evaluated in room B2. A complete history and physical exam was performed. Chest x-ray was obtained as described above. 0049: Ordered Solu-Medrol 125 mg IV, Duoneb 3 ml INH. 0206: I updated the patient on his test results. After the duoneb treatment, the patient coughed excessively and then felt better. 0213: Ordered Albuterol/Ipratropium 2 puffs INH. 0226: Upon reevaluation, the patient is resting comfortably. I discussed findings and results with him. He verbalized agreement of the treatment plan. The patient was discharged home. Medical Decision The patient is a 82 year old male who presents to the ED with a constant cough. Differential diagnosis includes URI, pneumonia, bronchitis, reactive airway disease. Lab results show: BUN 26 creatinine 1, glucose 111, normal white blood cell count, hemoglobin 13.2. This is an 82-year-old male patient presents to the emergency department with a persistent cough. Despite taking Zithromax and prednisone, the cough continues. The patient does have a remote history of asthma for which he took off took theophylline when years ago but has not had any problem in the past 20- 30 years. The patient had significant improvement in his wheezing after receiving a DuoNeb treatment. He will be discharged home to finish his course of Zithromax and prednisone. I've added a Combivent inhaler and encouraged him to continue using the Ventolin as well. He will follow-up with his PCP by Friday and may need referral to pulmonary medicine. Medication Reconcilliation Current Medication List: was personally reviewed by me Blood Pressure Screening Patient's blood pressure: Elevated blood pressure Blood pressure disposition: Elevated BP felt to be situational Impression Primary Impression: Acute wheezy bronchitis Scribe Attestation The scribe's documentation has been prepared under my direction and personally reviewed by me in its entirety. I confirm that the note above accurately reflects all work, treatment, procedures, and medical decision making performed by me. Departure Information Dispostion Home / Self-Care Referrals Kal Gooden M.D. (PCP) Forms HOME CARE DOCUMENTATION FORM, IMPORTANT VISIT INFORMATION, WORK / SCHOOL INSTRUCTIONS Patient Instructions ED Wheezing, My [facility] Additional Instructions Use combivent inhaler - 2 puffs every 8 hours. Ventolin inhaler - 2 puffs every 4 hours as needed for wheezing. Finish prednisone and antibiotics. Call Dr. Gooden office this AM for an appointment on Friday. You may need referred to Pulmonary Medicine Return to the ER for worsening symptoms
[2017-09-17 01:12] LABS: BASO % 0.4 %; BASO ABS # 0.03 K/uL (0-0.2); EOS % 0.6 %; EOS ABS # 0.05 K/uL (0-0.5); HEMATOCRIT 39.7 % (42-52); HEMOGLOBIN 13.2 g/dL (14.0-18.0); IG# 0.02 K/uL (0.00-0.02); LYMPH % 12.2 %; LYMPH ABS # 0.95 K/uL (1.2-3.4); MEAN CELL VOLUME 92.5 fL (80-100); MEAN CORPUSCULAR HEMOGLOBIN 30.8 pg (25-34); MEAN CORPUSCULAR HGB CONC 33.2 g/dl (32-36); MEAN PLATELET VOLUME 11.7 fL (7.4-10.4); MONO % 7.9 %; MONO ABS # 0.62 K/uL (0.11-0.59); NEUT % 78.6 %; NEUT ABS # 6.13 K/uL (1.4-6.5); PLATELET COUNT 114 K/uL (130-400); RED CELL DISTRIBUTION WIDTH CV 13.3 % (11.5-14.5); RED CELL DISTRIBUTION WIDTH SD 44.6 fL (36.4-46.3)
[2017-09-17 01:31] LABS: CALCIUM 8.6 mg/dl (8.5-10.1); CREATININE 1.06 mg/dl (0.60-1.40); POTASSIUM 3.9 mmol/L (3.5-5.1)
[2017-09-17] MEDS ORDERED: IPRATROPIUM BROMIDE/ALBUTEROL respimat INH INH STA (02:13)
[2017-09-17 02:40] VITALS: BP 135/58; PULSE 70; O2SAT 95
[2017-09-17] MEDS ORDERED: LIDOCAINE HCL 2% VISC SOLN 20 ML UDC PO STA (02:46)
[2017-09-17] MEDS ORDERED: ALUMINUM/MAGNESIUM SUSP 30 ML UDC PO STA (02:46)
--- NOTE | 2017-09-17 06:44 | DIAGNOSTIC IMAGING REPORT ---
CHEST 2 VIEWS ROUTINE HISTORY: 82 years-old Male continued wheezing acute wheezing with productive cough COMPARISON: Chest radiograph 09/14/2017 TECHNIQUE: PA and lateral views of the chest FINDINGS: Mitral annular calcifications redemonstrated. Cardiac silhouette is within normal limits. Atherosclerosis of the aorta. No pneumothorax, pleural effusion, focal airspace consolidation or overt pulmonary edema. The bones of the chest appear grossly intact. Cholecystectomy clips of the right upper abdomen. IMPRESSION: No acute process. The above report was generated using voice recognition software. It may contain grammatical, syntax or spelling errors. Electronically signed by: Tigre Reyes M.D. 09/17/2017 6:43 AM Dictated Date/Time: 09/17/2017 6:41 AM
== END 2017-09-17 03:12 | disposition home or self-care (01) ==
LOC: C.EDB 00:12
DX: J20.9 Acute bronchitis, unspecified (principal); I48.91 Unspecified atrial fibrillation; J45.909 Unspecified asthma, uncomplicated; Z87.891 Personal history of nicotine dependence; Z96.649 Presence of unspecified artificial hip joint; Z90.49 Acquired absence of other specified parts of digestive tract; Z79.899 Other long term (current) drug therapy

== ENCOUNTER 2017-09-19 17:30 | Observation (INO) | payer OTHER ==
[~2017-09-19] VITALS: Ht 170.2 cm; Wt 74.2 kg
[2017-09-19] MEDS ORDERED: ALBUT/IPRATROP 3MG/0.5MG NEB 3 ML VIAL INH STA ×2 (17:55→20:40)
[2017-09-19] MEDS ORDERED: [UNRECOGNIZED DRUG - OTHER] PO (17:57)
[2017-09-19 18:19] LABS: BASO % 0.2 %; BASO ABS # 0.01 K/uL (0-0.2); EOS % 3.3 %; EOS ABS # 0.15 K/uL (0-0.5); HEMATOCRIT 40.9 % (42-52); HEMOGLOBIN 13.6 g/dL (14.0-18.0); IG# 0.01 K/uL (0.00-0.02); LYMPH % 30.3 %; LYMPH ABS # 1.39 K/uL (1.2-3.4); MEAN CORPUSCULAR HEMOGLOBIN 31.3 pg (25-34); MEAN CORPUSCULAR HGB CONC 33.3 g/dl (32-36); MEAN PLATELET VOLUME 11.8 fL (7.4-10.4); MONO % 15.1 %; MONO ABS # 0.69 K/uL (0.11-0.59); NEUT % 50.9 %; NEUT ABS # 2.33 K/uL (1.4-6.5); PLATELET COUNT 131 K/uL (130-400); RED CELL DISTRIBUTION WIDTH CV 13.4 % (11.5-14.5); RED CELL DISTRIBUTION WIDTH SD 46.2 fL (36.4-46.3); WHITE BLOOD COUNT 4.58 K/uL (4.8-10.8)
[2017-09-19 18:29] LABS: PTT PATIENT 25.9 SECONDS (21.0-31.0)
[2017-09-19 18:35] LABS: ALBUMIN 3.7 gm/dl (3.4-5.0); ALT/SGPT 25 U/L (12-78); AST/SGOT 27 U/L (15-37); BLOOD UREA NITROGEN 23 mg/dl (7-18); CALCIUM 9.3 mg/dl (8.5-10.1); CARBON DIOXIDE 30 mmol/L (21-32); CREATININE 0.99 mg/dl (0.60-1.40); GLUCOSE 98 mg/dl (70-99); POTASSIUM 3.8 mmol/L (3.5-5.1); SODIUM 141 mmol/L (136-145)
[2017-09-19 18:40] LABS: ALKALINE PHOSPHATASE 47 U/L (45-117); TOTAL PROTEIN 7.6 gm/dl (6.4-8.2)
--- NOTE | 2017-09-19 18:55 | DIAGNOSTIC IMAGING REPORT ---
CHEST 2 VIEWS ROUTINE HISTORY: 82 years-old Male EVALUATE RESPIRATORY DISTRESS.DYSPNEA acute respiratory distress COMPARISON: Chest radiograph 7 09/17/2017 TECHNIQUE: PA and lateral views of the chest FINDINGS: Cardiac silhouette is within normal limits in size. Dense annular calcifications of the mitral valve. Atherosclerosis of the aorta. There is no pneumothorax, pleural effusion, focal airspace consolidation or overt pulmonary edema. Bones of the chest appear grossly intact. Cholecystectomy clips noted. Degenerative changes are seen within the spine and shoulders. IMPRESSION: No acute process. The above report was generated using voice recognition software. It may contain grammatical, syntax or spelling errors. Electronically signed by: Tigre Reyes M.D. 09/19/2017 6:54 PM Dictated Date/Time: 09/19/2017 6:53 PM
--- NOTE | 2017-09-19 19:10 | EMERGENCY ROOM VISIT NOTE ---
History Report prepared by Carol: Milan Stone Under the Supervision of: Gretchen LeeO. First contact with patient: 17:42 Chief Complaint: COUGH Stated Complaint: COUGH,SAME BEFORE History of Present Illness The patient is an 82 year old male who presents to the Emergency Room with complaints of a worsening cough for the past three weeks. The patient states that he has had this persistent cough, and he has come to the ED twice before for similar symptoms, and it has gotten worse since then, and he was given a steroid and a Combivent which made him cough more. The patient additionally states that he is short of breath, and he is having some chest pain and abdominal pain when he coughs. He notes that his cough is worse after he eats or drinks anything, and he states that a nebulizer treatment helped his cough. He states that he is feeling like he is intermittently aspirating as well. The patient states that he was put on a Z-pack and doxycycline a week and a half ago. The patient denies any nausea, vomiting, fever, leg swelling, and any clots in his lungs or legs. The patient notes that he is having night sweats, and he is unable to sleep due to his coughing. Source of History: patient Onset: three weeks ago Position: other (global) Quality: other (cough) Timing: worsening Modifying Factors (Worsening): eating, drinking Modifying Factors (Relieving): other (nebulizer) Associated Symptoms: + chest pain, + SOB, + abdominal pain, No fevers, No nausea, No vomiting Review of Systems See HPI for pertinent positives & negatives. A total of 10 systems reviewed and were otherwise negative. 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 Family History No significant family history Social History Smoking Status: Never Smoker Alcohol Use: none Drug Use: none Marital Status: Housing Status: lives with significant other Occupation Status: retired Current/Historical Medications Scheduled Ascorbic Acid (Ascorbic Acid), 500 MG PO TID B-Complex Vitamins (Vitamin B Complex), 1 TAB PO BID Cholecalciferol (Thera-D 4000), 4,000 UNITS PO QAM Coenzyme Q10 (Ubidecarenone) (Coenzyme Q10), 100 MG PO DAILY Flecainide (Tambocor), 50 MG PO Q12 Metoprolol Succinate (Toprol Xl), 12.5 MG PO HS [place] ([place]ren[place] Repens) (S[place]), 160 MG PO BID Tocopheryl Acet,Dl-Alpha (Vitamin E/Dl-Alpha), 400 UNITS PO DAILY [Chloraphil Complex], 1 DOSE PO BID Scheduled PRN Ranitidine (Zantac), 150 MG PO BID PRN for Indigestion Allergies Coded Allergies: Codeine (Verified Allergy, Unknown, 09/17/17) Latex1 -Allergic Contact Dermititis (Verified Allergy, Unknown, WELTS, RASH, 09/17/17) Lactose. (Verified Adverse Reaction, Intermediate, GI SYMPTOMS, 09/19/17) Oxycodone (Verified Adverse Reaction, Intermediate, N/V, 09/19/17) Prednisone (Verified Adverse Reaction, Intermediate, "CAUSED THRUSH IN MOUTH"., 09/19/17) Wheat (Verified Adverse Reaction, Intermediate, GI SYMPTOMS, 09/19/17) Morphine (Verified Adverse Reaction, Unknown, DELIRIUM, 09/19/17) Penicillins (Verified Adverse Reaction, Unknown, DELIRIOUS, 09/19/17) Sulfa Antibiotics (Verified Adverse Reaction, Unknown, DELIRIUM, 09/19/17) Physical Exam Vital Signs Date Time Temp Pulse Resp B/P (MAP) Pulse Ox O2 Delivery O2 Flow Rate FiO2 09/19/17 21:30 84 20 119/54 09/19/17 21:00 68 16 129/59 99 Room Air 09/19/17 20:30 71 18 133/57 97 Nasal Cannula 1.0 09/19/17 19:16 98 Nasal Cannula 1.0 09/19/17 19:15 86 Room Air 09/19/17 19:01 79 120/58 98 Room Air 09/19/17 18:30 71 16 143/58 97 Room Air 09/19/17 18:13 64 09/19/17 18:07 64 14 136/102 96 Room Air 09/19/17 18:00 96 Room Air 09/19/17 18:00 96 Room Air 09/19/17 18:00 96 Room Air 09/19/17 17:39 36.9 71 20 126/63 96 Room Air Physical Exam GENERAL: Patient is awake, alert, and in no acute distress. Patient is resting comfortably and showing no signs of anxiety EYES: The conjunctivae are clear. The pupils are round and reactive. EARS, NOSE, MOUTH AND THROAT: The nose is without any evidence of any deformity. Mucous membranes are moist tongue is midline NECK: The neck is nontender and supple. RESPIRATORY: There was expiratory wheezing noted throughout. No tachypnea or conversational dyspnea. CARDIOVASCULAR: Regular rate and rhythm noted there no murmurs rubs or gallops normal S1 normal S2 GASTROINTESTINAL: The abdomen is soft. Bowel sounds are present in all quadrants. Abdomen is nontender MUSCULOSKELETAL/EXTREMITIES: There is no evidence of gross deformity full range of motion is noted in the hips and shoulders SKIN: There is no obvious evidence of any rash. There are no petechiae, pallor or cyanosis noted. NEUROLOGIC: Patient is awake alert and oriented x3 strength is symmetric patellar reflexes are 2+ bilaterally Medical Decision & Procedures ER Provider Diagnostic Interpretation: Radiology results as stated below per my review and radiologist interpretation: CHEST 2 VIEWS ROUTINE HISTORY: 82 years-old Male EVALUATE RESPIRATORY DISTRESS.DYSPNEA acute respiratory distress COMPARISON: Chest radiograph 7 09/17/2017 TECHNIQUE: PA and lateral views of the chest FINDINGS: Cardiac silhouette is within normal limits in size. Dense annular calcifications of the mitral valve. Atherosclerosis of the aorta. There is no pneumothorax, pleural effusion, focal airspace consolidation or overt pulmonary edema. Bones of the chest appear grossly intact. Cholecystectomy clips noted. Degenerative changes are seen within the spine and shoulders. IMPRESSION: No acute process. The above report was generated using voice recognition software. It may contain grammatical, syntax or spelling errors. Electronically signed by: Tigre Reyes M.D. 09/19/2017 6:54 PM Dictated Date/Time: 09/19/2017 6:53 PM (CHEST FOR PE) ANGIO WITH CT DOSE: 195.24 mGy.cm HISTORY: 82 years-old Male presents with acute hypoxia TECHNIQUE: Multiple CTA images of the chest were obtained after the intravenous administration of 97 ml Optiray 320. Coronal and sagittal MIPS were obtained from the axial data set and were submitted for review. A dose lowering technique was utilized adhering to the principles of ALARA. COMPARISON: Chest radiographs of same day, CTA of the chest 04/10/2016. FINDINGS: CTA: Mild enlargement of the heart. Dense calcifications of the mitral annulus. Coronary arterial disease. Moderate atherosclerosis of the thoracic aorta without aneurysm or dissection. Note is made of a bovine aortic arch. Imaged great vessels appear to be patent. The pulmonary arterial tree is opacified to level of the distal segmental branches. The subsegmental branches are not well opacified and are also mildly obscured by respiratory motion. No focal filling defects identified to suggest pulmonary thromboembolic disease. CT CHEST: Thyroid appears to be homogeneous. No pathologically enlarged lymph nodes by CT size criteria. There is no pneumothorax or pleural effusion. Subsegmental dependent groundglass opacities are noted bilaterally suggesting atelectasis. Mild bilateral bronchial wall thickening is noted, greatest within the left lower lobe which appears unchanged. Central airways are patent. No lobar airspace consolidation. Prior cholecystectomy. Severe atrophy of the pancreas. No acute amount of the imaged upper abdomen. Soft tissues are unremarkable. Bilateral gynecomastia. Bones appear mildly demineralized. IMPRESSION: 1. No acute intrathoracic abnormality identified, specifically no acute aortic pathology or evidence of pulmonary thromboembolic disease. 2. No lobar airspace consolidation to suggest pneumonia. 3. No pathologic adenopathy. The above report was generated using voice recognition software. It may contain grammatical, syntax or spelling errors. Electronically signed by: Tigre Reyes M.D. 09/19/2017 8:26 PM Dictated Date/Time: 09/19/2017 8:19 PM Laboratory Results 09/19/17 18:05 Red Blood Count 4.35, Mean Corpuscular Volume 94.0, Mean Corpuscular Hemoglobin 31.3, Mean Corpuscular Hemoglobin Concent 33.3, Mean Platelet Volume 11.8, Neutrophils (%) (Auto) 50.9, Lymphocytes (%) (Auto) 30.3, Monocytes (%) (Auto) 15.1, Eosinophils (%) (Auto) 3.3, Basophils (%) (Auto) 0.2, Neutrophils # (Auto ) 2.33, Lymphocytes # (Auto) 1.39, Monocytes # (Auto) 0.69, Eosinophils # (Auto ) 0.15, Basophils # (Auto) 0.01 09/19/17 18:05 Test 09/19/17 18:05 White Blood Count 4.58 K/uL (4.8-10.8) Red Blood Count 4.35 M/uL (4.7-6.1) Hemoglobin 13.6 g/dL (14.0-18.0) Hematocrit 40.9 % (42-52) Mean Corpuscular Volume 94.0 fL (80-100) Mean Corpuscular Hemoglobin 31.3 pg (25-34) Mean Corpuscular Hemoglobin Concent 33.3 g/dl (32-36) Platelet Count 131 K/uL (130-400) Mean Platelet Volume 11.8 fL (7.4-10.4) Neutrophils (%) (Auto) 50.9 % Lymphocytes (%) (Auto) 30.3 % Monocytes (%) (Auto) 15.1 % Eosinophils (%) (Auto) 3.3 % Basophils (%) (Auto) 0.2 % Neutrophils # (Auto) 2.33 K/uL (1.4-6.5) Lymphocytes # (Auto) 1.39 K/uL (1.2-3.4) Monocytes # (Auto) 0.69 K/uL (0.11-0.59) Eosinophils # (Auto) 0.15 K/uL (0-0.5) Basophils # (Auto) 0.01 K/uL (0-0.2) RDW Standard Deviation 46.2 fL (36.4-46.3) RDW Coefficient of Variation 13.4 % (11.5-14.5) Immature Granulocyte % (Auto) 0.2 % Immature Granulocyte # (Auto) 0.01 K/uL (0.00-0.02) Prothrombin Time 10.3 SECONDS (9.0-12.0) Prothromb Time International Ratio 1.0 (0.9-1.1) Activated Partial Thromboplast Time 25.9 SECONDS (21.0-31.0) Partial Thromboplastin Ratio 1.0 Anion Gap 7.0 mmol/L (3-11) Est Creatinine Clear Calc Drug Dose 54.7 ml/min Estimated GFR () 82.4 Estimated GFR (Non- 71.1 BUN/Creatinine Ratio 23.0 (10-20) Calcium Level 9.3 mg/dl (8.5-10.1) Total Bilirubin 0.4 mg/dl (0.2-1) Aspartate Amino Transf (AST/SGOT) 27 U/L (15-37) Alanine Aminotransferase (ALT/SGPT) 25 U/L (12-78) Alkaline Phosphatase 47 U/L (45-117) Troponin I < 0.015 ng/ml (0-0.045) Pro-B-Type Natriuretic Peptide 390 pg/ml (0-1800) Total Protein 7.6 gm/dl (6.4-8.2) Albumin 3.7 gm/dl (3.4-5.0) Globulin 3.9 gm/dl (2.5-4.0) Albumin/Globulin Ratio 1.0 (0.9-2) Laboratory results per my review. Medications Administered Medications (Trade) Dose Ordered Sig/Osvaldo Route Start Time Stop Time Status Last Admin Dose Admin Albuterol/ Ipratropium (Duoneb) 3 ml NOW STAT INH 09/19/17 17:55 09/19/17 17:56 DC 09/19/17 18:08 3 ML Albuterol/ Ipratropium (Duoneb) 3 ml NOW STAT INH 09/19/17 20:40 09/19/17 20:41 DC 09/19/17 20:48 3 ML Methylprednisolone Sodium Succinate (Solu-Medrol IV) 125 mg NOW STAT IV 09/19/17 20:40 09/19/17 20:41 DC 09/19/17 20:47 125 MG Alprazolam (Xanax Tab) 0.5 mg NOW STAT PO 09/19/17 20:40 09/19/17 20:41 DC 09/19/17 20:47 0.5 MG ECG Indication: SOB/dyspnea Rate (beats per minute): 72 Rhythm: normal sinus Findings: no ectopy, other (No ST segment abnormalities) Comparison ECG Date: 09/18/17 Change: no significant change Change: EKG has been interpreted by me. ED Course 1741: The patient was evaluated in room A10. A complete history and physical examination were performed. 1754: DuoNeb 3ml INH 1903: I reevaluated the patient, and he was doing well. 1941: As the patient was being discharged his oxygen saturation dropped. 2038: Upon reevaluation, the patient is resting. I discussed results and treatment plan with him. He verbalizes agreement and understanding. The patient will be evaluated for further management and care. 2040: Xanax Tab 0.5mg PO, Solu-Medrol 125mg IV, DuoNeb 3ml INH 2130: I discussed the patient's case with Dr. Restrepo. The patient will be evaluated for further management. Medical Decision Differential diagnosis: Etiologies such as infections, reactive airway disease, pneumonia, pneumothorax , COPD, CHF, cardiac ischemia, pulmonary embolism, musculoskeletal, gastrointestinal, as well as others were entertained. Nursing notes reviewed. Patient's recent electronic medical records were reviewed. The patient is an 82-year-old male who presented to the emergency department for an evaluation of shortness of breath. The patient has had similar symptoms in the past and was seen at our facility recently for the same. He is been on 2 different antibiotics but continues to have significant wheezing and bronchospasm. He does not appear to have an infectious source for his complaints. His CAT scan of the chest was obtained to rule out pulmonary wasn' t. The patient started to have hypoxia noted on the utility porter. He was treated with bronchodilator therapy as well as steroids. He was significantly improved on middle supplement oxygen. I discussed his case with the on-call [facility] hospitalist. They have agreed to evaluate the patient in the emergency department for further management and disposition. Medication Reconcilliation Current Medication List: was personally reviewed by me Blood Pressure Screening Patient's blood pressure: Normal blood pressure Monitored by the hospitalist Consults Time Called: 2034 Consulting Physician: Dr. Restrepo Returned Call: 2130 I discussed the patient's case with Dr. Restrepo. The patient will be evaluated for further management. Impression Primary Impression: Bronchitis Additional Impression: Hypoxia Scribe Attestation The scribe's documentation has been prepared under my direction and personally reviewed by me in its entirety. I confirm that the note above accurately reflects all work, treatment, procedures, and medical decision making performed by me. Departure Information Dispostion Being Evaluated By Hospitalist Referrals Kal Gooden M.D. (PCP) Patient Instructions My [facility] [address] Problem Qualifiers
[2017-09-19] MEDS ORDERED: OPTIRAY 320 IV PRN (19:30)
--- NOTE | 2017-09-19 20:28 | DIAGNOSTIC IMAGING REPORT ---
(CHEST FOR PE) ANGIO WITH CT DOSE: 195.24 mGy.cm HISTORY: 82 years-old Male presents with acute hypoxia TECHNIQUE: Multiple CTA images of the chest were obtained after the intravenous administration of 97 ml Optiray 320. Coronal and sagittal MIPS were obtained from the axial data set and were submitted for review. A dose lowering technique was utilized adhering to the principles of ALARA. COMPARISON: Chest radiographs of same day, CTA of the chest 04/10/2016. FINDINGS: CTA: Mild enlargement of the heart. Dense calcifications of the mitral annulus. Coronary arterial disease. Moderate atherosclerosis of the thoracic aorta without aneurysm or dissection. Note is made of a bovine aortic arch. Imaged great vessels appear to be patent. The pulmonary arterial tree is opacified to level of the distal segmental branches. The subsegmental branches are not well opacified and are also mildly obscured by respiratory motion. No focal filling defects identified to suggest pulmonary thromboembolic disease. CT CHEST: Thyroid appears to be homogeneous. No pathologically enlarged lymph nodes by CT size criteria. There is no pneumothorax or pleural effusion. Subsegmental dependent groundglass opacities are noted bilaterally suggesting atelectasis. Mild bilateral bronchial wall thickening is noted, greatest within the left lower lobe which appears unchanged. Central airways are patent. No lobar airspace consolidation. Prior cholecystectomy. Severe atrophy of the pancreas. No acute amount of the imaged upper abdomen. Soft tissues are unremarkable. Bilateral gynecomastia. Bones appear mildly demineralized. IMPRESSION: 1. No acute intrathoracic abnormality identified, specifically no acute aortic pathology or evidence of pulmonary thromboembolic disease. 2. No lobar airspace consolidation to suggest pneumonia. 3. No pathologic adenopathy. The above report was generated using voice recognition software. It may contain grammatical, syntax or spelling errors. Electronically signed by: Tigre Reyes M.D. 09/19/2017 8:26 PM Dictated Date/Time: 09/19/2017 8:19 PM
[2017-09-19] MEDS ORDERED: ALPRAZOLAM 0.5 MG TAB PO STA (20:40)
[2017-09-19] MEDS ORDERED: METHYLPREDNISOLONE 125 MG VIAL IV STA (20:40)
--- NOTE | 2017-09-19 20:51 | History and Physical ---
History & Physical Date & Time of Service: Sep 19, 2017 at 20:45 Chief Complaint: Cough,Same As Before Primary Care Physician: Kal Gooden M.D. History of Present Illness Source: patient 82 y/o M Hx PAF, LEO, GI bleed, duodenal ulcers, esophageal strictures, LEO. Presents with SOB, wheezing, persistent cough and dysphagia for liquids. The pt states that his cough worsens after he eats and at night, disturbing his sleep. He has known esophageal stenosis but denies any difficulty swallowing solid food after undergoing EGD with dilation 04/16. He denies CP, N/V or fevers. While in the ER it was noted that his 02 saturation was ranging between 86 to 96 and he occasionally required supplemental 02. A CT chest did not reveal any abnormalities or evidence of aspiration PNM. Past Medical/Surgical History 1) Paroxysmal atrial fibrillation 2) LEO - He states he does not use CPAP as his MD stated that this may trigger his AF 3) GERD 4) Esophageal strictures - EGD with dilation 04/16 5) Duodenal ulcer 6) GI bleed (on Eliquis) Family History No significant family history Both parents owing to CA - two siblings with CAD Social History Quit smoking in 1967 - does not drink Drug Use: none Marital Status: Housing status: lives with family Occupational Status: retired Immunizations History of Influenza Vaccine: No History of Tetanus Vaccine?: Yes History of Pneumococcal: Yes History of Hepatitis B Vaccine: No Multi-Drug Resistant Organisms History of MDRO: No Allergies Coded Allergies: Prednisone (Verified Allergy, Intermediate, "CAUSED THRUSH IN MOUTH"., ) Codeine (Verified Allergy, Unknown, 09/17/17) Latex1 -Allergic Contact Dermititis (Verified Allergy, Unknown, WELTS, RASH, 09/17/17) Morphine (Verified Allergy, Unknown, DELIRIUM, 09/17/17) Lactose. (Verified Adverse Reaction, Intermediate, GI SYMPTOMS, 09/19/17) Oxycodone (Verified Adverse Reaction, Intermediate, N/V, 09/19/17) Wheat (Verified Adverse Reaction, Intermediate, GI SYMPTOMS, 09/19/17) Penicillins (Verified Adverse Reaction, Unknown, DELIRIOUS, 09/19/17) Sulfa Drugs (Verified Adverse Reaction, Unknown, DELIRIOUS, 09/19/17) Home Medications Scheduled Ascorbic Acid (Ascorbic Acid), 500 MG PO TID B-Complex Vitamins (Vitamin B Complex), 1 TAB PO BID Cholecalciferol (Thera-D 4000), 4,000 UNITS PO QAM Coenzyme Q10 (Ubidecarenone) (Coenzyme Q10), 100 MG PO DAILY Flecainide (Tambocor), 50 MG PO Q12 Metoprolol Succinate (Toprol Xl), 12.5 MG PO HS Saw [place] (Serenoa Repens) (Saw [place]), 160 MG PO BID Tocopheryl Acet,Dl-Alpha (Vitamin E/Dl-Alpha), 400 UNITS PO DAILY [Chloraphil Complex], 1 DOSE PO BID Scheduled PRN Ranitidine (Zantac), 150 MG PO BID PRN for Indigestion Review of Systems Constitutional: No fever, No chills, No sweats Eyes: No worsening of vision ENT: No hearing loss, No unusual epistaxis, No nasal symptoms Respiratory: + cough, + wheezing, + shortness of breath, + dyspnea on exertion , + dyspnea at rest Cardiovascular: No chest pain, No orthopnea, No PND Abdomen: + problem reported (Difficulty swallowing water), No pain, No nausea, No vomiting Musculoskeletal: No joint pain Genitourinary - Male: No hematuria, No dysuria Neurologic: No memory loss, No paralysis, No weakness Psychiatric: No depression symptoms Endocrine: No fatigue Hematologic / Lymphatic: No abnormal bleeding/bruising Integumentary: No rash Allergic / Immunologic: No environmental allergies Physical Exam Vital Signs Date Time Temp Pulse Resp B/P (MAP) Pulse Ox O2 Delivery O2 Flow Rate FiO2 09/19/17 20:30 71 18 133/57 97 Nasal Cannula 1.0 09/19/17 19:16 98 Nasal Cannula 1.0 09/19/17 19:15 86 Room Air 09/19/17 19:01 79 120/58 98 Room Air 09/19/17 18:30 71 16 143/58 97 Room Air 09/19/17 18:13 64 09/19/17 18:07 64 14 136/102 96 Room Air 09/19/17 18:00 96 Room Air 09/19/17 18:00 96 Room Air 09/19/17 18:00 96 Room Air 09/19/17 17:39 36.9 71 20 126/63 96 Room Air General Appearance: WD/WN, no apparent distress Head: normocephalic Eyes: normal inspection ENT: normal ENT inspection, hearing grossly normal Neck: supple, no JVD Respiratory/Chest: chest non-tender, + crackles (R base), + wheezing (BL wheezing in all vigil) Cardiovascular: regular rate, rhythm, no edema, no gallop Abdomen/GI: normal bowel sounds, non tender, soft Back: normal inspection, no CVA tenderness Extremities/Musculoskelatal: normal inspection Neurologic/Psych: glue cook II-XII nml as tested, no motor/sensory deficits, alert, oriented x 3 Skin: normal color, warm/dry, no rash Diagnostics Laboratory Results Results Past 24 Hours Test 09/19/17 18:05 Range/Units White Blood Count 4.58 4.8-10.8 K/uL Red Blood Count 4.35 4.7-6.1 M/uL Hemoglobin 13.6 14.0-18.0 g/dL Hematocrit 40.9 42-52 % Mean Corpuscular Volume 94.0 80-100 fL Mean Corpuscular Hemoglobin 31.3 25-34 pg Mean Corpuscular Hemoglobin Concent 33.3 32-36 g/dl Platelet Count 131 130-400 K/uL Mean Platelet Volume 11.8 7.4-10.4 fL Neutrophils (%) (Auto) 50.9 % Lymphocytes (%) (Auto) 30.3 % Monocytes (%) (Auto) 15.1 % Eosinophils (%) (Auto) 3.3 % Basophils (%) (Auto) 0.2 % Neutrophils # (Auto) 2.33 1.4-6.5 K/uL Lymphocytes # (Auto) 1.39 1.2-3.4 K/uL Monocytes # (Auto) 0.69 0.11-0.59 K/uL Eosinophils # (Auto) 0.15 0-0.5 K/uL Basophils # (Auto) 0.01 0-0.2 K/uL RDW Standard Deviation 46.2 36.4-46.3 fL RDW Coefficient of Variation 13.4 11.5-14.5 % Immature Granulocyte % (Auto) 0.2 % Immature Granulocyte # (Auto) 0.01 0.00-0.02 K/uL Prothrombin Time 10.3 9.0-12.0 SECONDS Prothromb Time International Ratio 1.0 0.9-1.1 Activated Partial Thromboplast Time 25.9 21.0-31.0 SECONDS Partial Thromboplastin Ratio 1.0 Sodium Level 141 136-145 mmol/L Potassium Level 3.8 3.5-5.1 mmol/L Chloride Level 104 98-107 mmol/L Carbon Dioxide Level 30 21-32 mmol/L Anion Gap 7.0 3-11 mmol/L Blood Urea Nitrogen 23 7-18 mg/dl Creatinine 0.99 0.60-1.40 mg/dl Est Creatinine Clear Calc Drug Dose 54.7 ml/min Estimated GFR () 82.4 Estimated GFR (Non- 71.1 BUN/Creatinine Ratio 23.0 10-20 Random Glucose 98 70-99 mg/dl Calcium Level 9.3 8.5-10.1 mg/dl Total Bilirubin 0.4 0.2-1 mg/dl Aspartate Amino Transf (AST/SGOT) 27 15-37 U/L Alanine Aminotransferase (ALT/SGPT) 25 12-78 U/L Alkaline Phosphatase 47 45-117 U/L Troponin I < 0.015 0-0.045 ng/ml Pro-B-Type Natriuretic Peptide 390 0-1800 pg/ml Total Protein 7.6 6.4-8.2 gm/dl Albumin 3.7 3.4-5.0 gm/dl Globulin 3.9 2.5-4.0 gm/dl Albumin/Globulin Ratio 1.0 0.9-2 Diagnostic Radiology CTA: 1. No acute intrathoracic abnormality identified, specifically no acute aortic pathology or evidence of pulmonary thromboembolic disease. 2. No lobar airspace consolidation to suggest pneumonia. 3. No pathologic adenopathy. Normal EKG Impression Assessment and Plan 82 y/o M Hx PAF, LEO, GI bleed, duodenal ulcers, esophageal strictures, LEO. Presents with SOB, wheezing, persistent cough and dysphagia for liquids. The pt states that his cough worsens after he eats and at night, disturbing his sleep. He has known esophageal stenosis but denies any difficulty swallowing solid food after undergoing EGD with dilation 04/16. He denies CP, N/V or fevers. While in the ER it was noted that his 02 saturation was ranging between 86 to 96 and he occasionally required supplemental 02. A CT chest did not reveal any abnormalities or evidence of aspiration PNM. 1) SOB, cough, wheezing - history, physical and imaging support GERD as causative. He is likely having bronchospasm related to persistent aspiration. Currently we will place him on Albuterol, steroids and an 02 protocol. We may need a pulmonary consult in addition to GI input if his hypoxia persists 2) GERD, esophageal strictures, likely aspiration - we will consult GI and place the pt on dual suppression therapy. Aspiration precautions and a swallow eval requested as he describes difficulty drinking water - an inconsistent finding excepting fluids may more rapidly contribute to bronchospasm. 3) PAF - sinus currently - cont Metoprolol, Flecainide 4) LEO - untreated - monitor sats overnight Full code - SCDS - told to avoid anticoagulation Total time for this admit including review of labs, meds, imaging, records, EKG - discussion with pt and ER attending Level of Care Med/Surg Resuscitation Status FULL RESUSCITATION VTE Prophylaxis Risk Level: Low Given or contraindicated: SCD's
[2017-09-19] MEDS ORDERED: ALBUTEROL 0.083% NEBU SOLN 3 ML VIAL INH PRN (21:45)
[2017-09-19] MEDS ORDERED: ONDANSETRON INJ 2 MG/ML 2 ML VIAL IV PRN (21:45)
[2017-09-19] MEDS ORDERED: ALUMINUM/MAGNESIUM/SIMETH (MAALOX MAX) 30 ML UDC PO PRN (21:45)
[2017-09-19] MEDS ORDERED: MAGNESIUM HYDROXIDE SUSP 30 ML UDC PO PRN (21:45)
[2017-09-19] MEDS ORDERED: RANITIDINE HCL 150 MG TAB PO PRN (21:45)
[2017-09-19] MEDS ORDERED: ACETAMINOPHEN 325 MG TAB PO PRN (21:45)
[2017-09-19] MEDS ORDERED: PANTOprazole INJ 40 MG in SYRINGE 0 ML IV STA (22:13)
[2017-09-19] MEDS ORDERED: POLYETHYLENE (MIRALAX) 17 GM PACK PO PRN (22:15)
[2017-09-19] MEDS ORDERED: D5NSS + 20MEQ KCL 1,000 ML IV SCH (23:30)
[2017-09-19 23:34] VITALS: BP 115/62; PULSE 74; TEMP 36.5; O2SAT 96
[2017-09-20] VITALS: BP 115/62; PULSE 74; TEMP 36.5; O2SAT 96; Ht 170.2 cm; Wt 74.2 kg
[2017-09-20] MEDS: METHYLPREDNISOLONE IV 40 MG in SYRINGE 0 ML IV SCH ×4 (02:10→20:14)
[2017-09-20] MEDS ORDERED: IV FLUIDS COMPLETED PRN (05:00)
[2017-09-20 07:19] VITALS: BP 138/74; PULSE 84; TEMP 36.9; O2SAT 94
[2017-09-20] MEDS: FLECAINIDE ACETATE 100 MG TAB PO SCH ×2 (07:38→20:14)
[2017-09-20 07:47] VITALS: O2SAT 94
[2017-09-20] MEDS: PANTOprazole INJ 40 MG in SYRINGE 0 ML IV SCH (10:26)
--- NOTE | 2017-09-20 11:14 | Progress Note ---
Subjective Date of Service: Sep 20, 2017. Subjective Pt evaluation today including: conversation w/ patient, conversation w/ family , physical exam, chart review, lab review, review of studies, conversation w/ sales development consultant, review of inpatient medication list Pain: no PO Intake: god Patient is seen and examined by me.Pt denies cp, sob, nausea, vomiting,diarrhea , dizziness, palpitation and loss of consciousness. Pt is c/o of cough for three weeks.Pt is able to swallow and did good with ice chips and water. Problem List Medical Problems: (1) Acute chest pain Status: Acute (2) Acute wheezy bronchitis Status: Acute (3) Atrial fibrillation with rapid ventricular response Status: Acute (4) Atrial fibrillation with RVR Status: Acute (5) Atrial fibrillation with RVR Status: Acute (6) Bronchitis Status: Acute (7) Hypoxia Status: Acute (8) Premature atrial complexes Status: Acute (9) Right lower quadrant abdominal pain Status: Acute (10) Sore throat Status: Acute (11) Substernal chest pain Status: Acute (12) Substernal chest pain Status: Acute (13) URI (upper respiratory infection) Status: Acute (14) Wasp sting Status: Acute Review of Systems Respiratory: + cough All Other Systems: Reviewed and Negative Medications Medications (Trade) Dose Ordered Sig/Osvaldo Route Start Time Stop Time Status Last Admin Dose Admin Albuterol/ Ipratropium (Duoneb) 3 ml NOW STAT INH 09/19/17 17:55 09/19/17 17:56 DC 09/19/17 18:08 3 ML Albuterol/ Ipratropium (Duoneb) 3 ml NOW STAT INH 09/19/17 20:40 09/19/17 20:41 DC 09/19/17 20:48 3 ML Methylprednisolone Sodium Succinate (Solu-Medrol IV) 125 mg NOW STAT IV 09/19/17 20:40 09/19/17 20:41 DC 09/19/17 20:47 125 MG Alprazolam (Xanax Tab) 0.5 mg NOW STAT PO 09/19/17 20:40 09/19/17 20:41 DC 09/19/17 20:47 0.5 MG Methylprednisolone Sodium Succinate 40 mg/Syringe 0.64 ml @ 1.5 mls/min Q6H IV 09/20/17 02:00 10/20/17 01:59 09/20/17 07:37 1.5 MLS/MIN Flecainide Acetate (Tambocor Tab) 50 mg Q12 PO 09/20/17 09:00 10/20/17 08:59 09/20/17 07:38 50 MG Potassium Chloride/Dextrose/ Sod Cl 1,000 ml @ 100 mls/hr Q10H IV 09/19/17 23:30 09/20/17 09:29 DC 09/20/17 00:37 100 MLS/HR Pantoprazole Sodium 40 mg/ Syringe 10 ml @ 5 mls/min DAILY@11 IV 09/20/17 11:00 10/20/17 10:59 09/20/17 10:26 5 MLS/MIN Pantoprazole Sodium 40 mg/ Syringe 10 ml @ 5 mls/min NOW STAT IV 09/19/17 22:13 09/19/17 22:14 DC 09/19/17 22:20 5 MLS/MIN Objective Vital Signs Date Time Temp Pulse Resp B/P (MAP) Pulse Ox O2 Delivery O2 Flow Rate FiO2 09/20/17 08:15 Room Air 09/20/17 07:47 94 Room Air 09/20/17 07:19 36.9 84 18 138/74 (95) 94 Room Air 09/20/17 00:00 36.5 74 20 115/62 96 Nasal Cannula 09/19/17 23:34 36.5 74 20 115/62 (79) 96 Nasal Cannula 2.0 09/19/17 22:11 83 20 123/54 92 09/19/17 21:49 78 Room Air 09/19/17 21:49 92 Nasal Cannula 2.0 09/19/17 21:30 84 20 119/54 09/19/17 21:00 68 16 129/59 99 Room Air 09/19/17 20:30 71 18 133/57 97 Nasal Cannula 1.0 09/19/17 19:16 98 Nasal Cannula 1.0 09/19/17 19:15 86 Room Air 09/19/17 19:01 79 120/58 98 Room Air 09/19/17 18:30 71 16 143/58 97 Room Air 09/19/17 18:13 64 09/19/17 18:07 64 14 136/102 96 Room Air 09/19/17 18:00 96 Room Air 09/19/17 18:00 96 Room Air 09/19/17 18:00 96 Room Air 09/19/17 17:39 36.9 71 20 126/63 96 Room Air Physical Exam General Appearance: WD/WN, no apparent distress Neck: supple Respiratory/Chest: lungs clear, normal breath sounds, no respiratory distress Cardiovascular: regular rate, rhythm, no edema, no murmur Abdomen: normal bowel sounds, non tender, soft, no organomegaly Neurologic/Psychiatric: no motor/sensory deficits, alert, normal mood/affect, oriented x 3 Skin: no rash Laboratory Results Last 24 Hours Test 09/19/17 18:05 White Blood Count 4.58 K/uL Red Blood Count 4.35 M/uL Hemoglobin 13.6 g/dL Hematocrit 40.9 % Mean Corpuscular Volume 94.0 fL Mean Corpuscular Hemoglobin 31.3 pg Mean Corpuscular Hemoglobin Concent 33.3 g/dl Platelet Count 131 K/uL Mean Platelet Volume 11.8 fL Neutrophils (%) (Auto) 50.9 % Lymphocytes (%) (Auto) 30.3 % Monocytes (%) (Auto) 15.1 % Eosinophils (%) (Auto) 3.3 % Basophils (%) (Auto) 0.2 % Neutrophils # (Auto) 2.33 K/uL Lymphocytes # (Auto) 1.39 K/uL Monocytes # (Auto) 0.69 K/uL Eosinophils # (Auto) 0.15 K/uL Basophils # (Auto) 0.01 K/uL RDW Standard Deviation 46.2 fL RDW Coefficient of Variation 13.4 % Immature Granulocyte % (Auto) 0.2 % Immature Granulocyte # (Auto) 0.01 K/uL Prothrombin Time 10.3 SECONDS Prothromb Time International Ratio 1.0 Activated Partial Thromboplast Time 25.9 SECONDS Partial Thromboplastin Ratio 1.0 Sodium Level 141 mmol/L Potassium Level 3.8 mmol/L Chloride Level 104 mmol/L Carbon Dioxide Level 30 mmol/L Anion Gap 7.0 mmol/L Blood Urea Nitrogen 23 mg/dl Creatinine 0.99 mg/dl Est Creatinine Clear Calc Drug Dose 54.7 ml/min Estimated GFR () 82.4 Estimated GFR (Non- 71.1 BUN/Creatinine Ratio 23.0 Random Glucose 98 mg/dl Calcium Level 9.3 mg/dl Total Bilirubin 0.4 mg/dl Aspartate Amino Transf (AST/SGOT) 27 U/L Alanine Aminotransferase (ALT/SGPT) 25 U/L Alkaline Phosphatase 47 U/L Troponin I < 0.015 ng/ml Pro-B-Type Natriuretic Peptide 390 pg/ml Total Protein 7.6 gm/dl Albumin 3.7 gm/dl Globulin 3.9 gm/dl Albumin/Globulin Ratio 1.0 Assessment and Plan 82 y/o M Hx PAF, LEO, GI bleed, duodenal ulcers, esophageal strictures, LEO. Presents with SOB, wheezing, persistent cough and dysphagia for liquids. The pt states that his cough worsens after he eats and at night, disturbing his sleep. He has known esophageal stenosis but denies any difficulty swallowing solid food after undergoing EGD with dilation 04/16. He denies CP, N/V or fevers. 1) Cough with wheezing -- possible GERD vs post nasal drip vs resolving bronchitis. Continue Albuterol , steroids and an 02 protocol. will add flonase to regimen. pulmonary consult 2) GERD -- GI input appreciated, swallow evaluation as per speech. Aspiration precautions for now. No need for EGD or other intervention. Continue PPI's and H2 blockers. 3) PAF - sinus currently - cont Metoprolol, Flecainide Continued [facility] stay due to: inadequate po fluid intake Discharge planning: home
--- NOTE | 2017-09-20 11:23 | Medical Consult ---
Consultation Date of Consultation: Sep 20, 2017. Attending Physician: Larry Restrepo M.D. History of Present Illness Coughing with eating and drinking for last three weeks. no purulence now. Has been on two courses of antibiotics, Doxy and Z pack. History pneumonia? History of asthma? No difficulty swallowing at present. some post prandial cough, though not exactly with drinking, but a few seconds to minute later. Past Medical/Surgical History Medical Problems: (1) Acute chest pain Status: Acute (2) Acute wheezy bronchitis Status: Acute (3) Atrial fibrillation with rapid ventricular response Status: Acute (4) Atrial fibrillation with RVR Status: Acute (5) Atrial fibrillation with RVR Status: Acute (6) Bronchitis Status: Acute (7) Hypoxia Status: Acute (8) Premature atrial complexes Status: Acute (9) Right lower quadrant abdominal pain Status: Acute (10) Sore throat Status: Acute (11) Substernal chest pain Status: Acute (12) Substernal chest pain Status: Acute (13) URI (upper respiratory infection) Status: Acute (14) Wasp sting Status: Acute Family History No significant family history Social History Smoking Status: Unknown if Ever Smoked Smokeless Tobacco Use: No Drug Use: none Marital Status: Housing Status: lives with significant other Occupation Status: retired Allergies Coded Allergies: Codeine (Verified Allergy, Unknown, 09/17/17) Latex1 -Allergic Contact Dermititis (Verified Allergy, Unknown, WELTS, RASH, 09/17/17) Lactose. (Verified Adverse Reaction, Intermediate, GI SYMPTOMS, 09/19/17) Oxycodone (Verified Adverse Reaction, Intermediate, N/V, 09/19/17) Prednisone (Verified Adverse Reaction, Intermediate, "CAUSED THRUSH IN MOUTH"., 09/19/17) Wheat (Verified Adverse Reaction, Intermediate, GI SYMPTOMS, 09/19/17) Morphine (Verified Adverse Reaction, Unknown, DELIRIUM, 09/19/17) Penicillins (Verified Adverse Reaction, Unknown, DELIRIOUS, 09/19/17) Sulfa Antibiotics (Verified Adverse Reaction, Unknown, DELIRIUM, 09/19/17) Current Inpatient Medications Current Inpatient Medications Medications (Trade) Dose Ordered Sig/Osvaldo Route Start Time Stop Time Status Last Admin Dose Admin Ioversol (Optiray 320) 111 ml UD PRN IV 09/19/17 19:30 09/23/17 19:29 Albuterol Sulfate (Ventolin 0.083% 2.5MG/3ML Neb) 2.5 mg Q4H PRN INH 09/19/17 21:45 10/19/17 21:44 Acetaminophen (Tylenol Tab) 650 mg Q4H PRN PO 09/19/17 21:45 10/19/17 21:44 Al Hydrox/Mg Hydrox/Simethicone (Maalox Max Susp) 15 ml Q4H PRN PO 09/19/17 21:45 10/19/17 21:44 Magnesium Hydroxide (Milk Of Magnesia Susp) 30 ml Q6H PRN PO 09/19/17 21:45 10/19/17 21:44 Polyethylene (Miralax Powder Packet) 17 gm DAILY PRN PO 09/19/17 22:15 10/19/17 22:14 Ondansetron HCl (Zofran Inj) 4 mg Q6H PRN IV 09/19/17 21:45 10/19/17 21:44 Methylprednisolone Sodium Succinate 40 mg/Syringe 0.64 ml @ 1.5 mls/min Q6H IV 09/20/17 02:00 10/20/17 01:59 09/20/17 07:37 1.5 MLS/MIN Flecainide Acetate (Tambocor Tab) 50 mg Q12 PO 09/20/17 09:00 10/20/17 08:59 09/20/17 07:38 50 MG Metoprolol Succinate (Toprol Xl Tab) 12.5 mg HS PO 09/20/17 21:00 10/20/17 20:59 Ranitidine HCl (zANTac TAB) 150 mg BID PRN PO 09/19/17 21:45 10/19/17 21:44 Pantoprazole Sodium 40 mg/ Syringe 10 ml @ 5 mls/min DAILY@11 IV 09/20/17 11:00 10/20/17 10:59 09/20/17 10:26 5 MLS/MIN Miscellaneous (Iv Fluids Completed) 1 ea PRN PRN N/A 09/20/17 05:00 09/20/18 04:59 Fluticasone Propionate (Flonase Nasal [place]) 2 sprays DAILY NA 09/21/17 08:00 2/20/18 07:59 Review of Systems Constitutional: No fever, No weight loss Respiratory: + cough, + sputum, + wheezing, + shortness of breath Cardiovascular: No chest pain Abdomen: No pain Physical Exam Date Time Temp Pulse Resp B/P (MAP) Pulse Ox O2 Delivery O2 Flow Rate FiO2 09/20/17 08:15 Room Air 09/20/17 07:47 94 Room Air 09/20/17 07:19 36.9 84 18 138/74 (95) 94 Room Air 09/20/17 00:00 36.5 74 20 115/62 96 Nasal Cannula 09/19/17 23:34 36.5 74 20 115/62 (79) 96 Nasal Cannula 2.0 09/19/17 22:11 83 20 123/54 92 09/19/17 21:49 78 Room Air 09/19/17 21:49 92 Nasal Cannula 2.0 09/19/17 21:30 84 20 119/54 09/19/17 21:00 68 16 129/59 99 Room Air 09/19/17 20:30 71 18 133/57 97 Nasal Cannula 1.0 09/19/17 19:16 98 Nasal Cannula 1.0 09/19/17 19:15 86 Room Air 09/19/17 19:01 79 120/58 98 Room Air 09/19/17 18:30 71 16 143/58 97 Room Air 09/19/17 18:13 64 09/19/17 18:07 64 14 136/102 96 Room Air 09/19/17 18:00 96 Room Air 09/19/17 18:00 96 Room Air 09/19/17 18:00 96 Room Air 09/19/17 17:39 36.9 71 20 126/63 96 Room Air General Appearance: no apparent distress, + thin Head: normocephalic Eyes: normal inspection ENT: pharynx normal Neck: no adenopathy, no JVD Respiratory/Chest: chest non-tender, + decreased breath sounds (right base), + crackles (right base), + rhonchi (right base) Cardiovascular: + systolic murmur (aortic and pulmonary) Extremities/Musculoskelatal: no pedal edema Neurologic/Psych: oriented x 3 Skin: normal color Laboratory Results Last 24 Hours Test 09/19/17 18:05 White Blood Count 4.58 K/uL Red Blood Count 4.35 M/uL Hemoglobin 13.6 g/dL Hematocrit 40.9 % Mean Corpuscular Volume 94.0 fL Mean Corpuscular Hemoglobin 31.3 pg Mean Corpuscular Hemoglobin Concent 33.3 g/dl Platelet Count 131 K/uL Mean Platelet Volume 11.8 fL Neutrophils (%) (Auto) 50.9 % Lymphocytes (%) (Auto) 30.3 % Monocytes (%) (Auto) 15.1 % Eosinophils (%) (Auto) 3.3 % Basophils (%) (Auto) 0.2 % Neutrophils # (Auto) 2.33 K/uL Lymphocytes # (Auto) 1.39 K/uL Monocytes # (Auto) 0.69 K/uL Eosinophils # (Auto) 0.15 K/uL Basophils # (Auto) 0.01 K/uL RDW Standard Deviation 46.2 fL RDW Coefficient of Variation 13.4 % Immature Granulocyte % (Auto) 0.2 % Immature Granulocyte # (Auto) 0.01 K/uL Prothrombin Time 10.3 SECONDS Prothromb Time International Ratio 1.0 Activated Partial Thromboplast Time 25.9 SECONDS Partial Thromboplastin Ratio 1.0 Sodium Level 141 mmol/L Potassium Level 3.8 mmol/L Chloride Level 104 mmol/L Carbon Dioxide Level 30 mmol/L Anion Gap 7.0 mmol/L Blood Urea Nitrogen 23 mg/dl Creatinine 0.99 mg/dl Est Creatinine Clear Calc Drug Dose 54.7 ml/min Estimated GFR () 82.4 Estimated GFR (Non- 71.1 BUN/Creatinine Ratio 23.0 Random Glucose 98 mg/dl Calcium Level 9.3 mg/dl Total Bilirubin 0.4 mg/dl Aspartate Amino Transf (AST/SGOT) 27 U/L Alanine Aminotransferase (ALT/SGPT) 25 U/L Alkaline Phosphatase 47 U/L Troponin I < 0.015 ng/ml Pro-B-Type Natriuretic Peptide 390 pg/ml Total Protein 7.6 gm/dl Albumin 3.7 gm/dl Globulin 3.9 gm/dl Albumin/Globulin Ratio 1.0 Assessment & Plan 1. Chronic cough: Maybe resolving pneumonia or post infectious cough. Rule out underlying lung disease, consult pulmonary. Unlikely aspiration, rule this out with a thin barium rehab swallow study. Keep NPO till cleared, hopefully today. 2. No dysphagia. No GI intervention now. Follow up in OP clinic as needed.
[2017-09-20 15:09] VITALS: BP 136/74; PULSE 73; TEMP 36.5; O2SAT 93
[2017-09-20 21:50] VITALS: BP 121/62; PULSE 67; O2SAT 97
[2017-09-20] MEDS: METOPROLOL SUCC 25MG EXT REL TAB PO SCH (21:53)
[2017-09-20 23:47] VITALS: BP 129/69; PULSE 70; TEMP 36.8; O2SAT 95
[2017-09-21] MEDS: METHYLPREDNISOLONE IV 40 MG in SYRINGE 0 ML IV SCH ×4 (02:02→19:56)
[2017-09-21 07:11] VITALS: BP 138/74; PULSE 64; TEMP 36.6; O2SAT 97
[2017-09-21] MEDS: FLUTICASONE PROPIONATE NA SPR 16 GM BTL SCH (07:34)
[2017-09-21] MEDS: PANTOprazole INJ 40 MG in SYRINGE 0 ML IV SCH (07:35)
[2017-09-21] MEDS: METOPROLOL SUCC 25MG EXT REL TAB PO SCH (07:35)
[2017-09-21] MEDS: FLECAINIDE ACETATE 100 MG TAB PO SCH ×2 (07:36→19:56)
--- NOTE | 2017-09-21 12:47 | Progress Note ---
Subjective Date of Service: Sep 21, 2017. Subjective Pt evaluation today including: conversation w/ patient, conversation w/ family , physical exam, chart review, lab review, conversation w/ eap consultant Pain: no pain Voiding: no voiding problems pt is seen and examined by me. pt state he wants to try soft food, no gluten and dairy, no corn syrup.pt denies cp, sob, dizziness, palpation and loss of consciousness. pt denies nausea, vomiting and diarrhea. Problem List Medical Problems: (1) Acute chest pain Status: Acute (2) Acute wheezy bronchitis Status: Acute (3) Atrial fibrillation with rapid ventricular response Status: Acute (4) Atrial fibrillation with RVR Status: Acute (5) Atrial fibrillation with RVR Status: Acute (6) Bronchitis Status: Acute (7) Hypoxia Status: Acute (8) Premature atrial complexes Status: Acute (9) Right lower quadrant abdominal pain Status: Acute (10) Sore throat Status: Acute (11) Substernal chest pain Status: Acute (12) Substernal chest pain Status: Acute (13) URI (upper respiratory infection) Status: Acute (14) Wasp sting Status: Acute Review of Systems Respiratory: + cough Abdomen: + pain, + nausea, + vomiting, + diarrhea, + constipation All Other Systems: Reviewed and Negative Objective Vital Signs Date Time Temp Pulse Resp B/P (MAP) Pulse Ox O2 Delivery O2 Flow Rate FiO2 09/21/17 08:30 Room Air 09/21/17 07:11 36.6 64 18 138/74 (95) 97 09/21/17 00:00 Room Air 09/20/17 23:47 36.8 70 18 129/69 (89) 95 Room Air 09/20/17 21:50 67 121/62 (81) 97 Room Air 09/20/17 20:00 Room Air 09/20/17 16:15 Room Air 09/20/17 15:09 36.5 73 18 136/74 (94) 93 Physical Exam General Appearance: no apparent distress Eyes: EOMI Neck: supple Cardiovascular: regular rate, rhythm, no edema Abdomen: normal bowel sounds, soft Extremities: non-tender, no calf tenderness Neurologic/Psychiatric: alert, normal mood/affect, oriented x 3 Skin: no rash Lymphatic: no adenopathy Assessment and Plan 82 y/o M Hx PAF, LEO, GI bleed, duodenal ulcers, esophageal strictures, LEO. Presents with SOB, wheezing, persistent cough and dysphagia for liquids. The pt states that his cough worsens after he eats and at night, disturbing his sleep. He has known esophageal stenosis but denies any difficulty swallowing solid food after undergoing EGD with dilation 04/16. He denies CP, N/V or fevers. 1) Cough with wheezing -- possible GERD vs post nasal drip vs resolving bronchitis. Continue Albuterol , steroids and an 02 protocol. - pulmonary input pending - nutritional referral. 2) GERD -- GI input appreciated, swallow evaluation as per speech. Aspiration precautions for now. No need for EGD or other intervention. Continue PPI's and H2 blockers. advance diet to softs for now. 3) PAF - sinus currently - cont Metoprolol, Flecainide Continued [facility] stay due to: inadequate po fluid intake Discharge planning: home
[2017-09-21 15:34] VITALS: BP 122/70; PULSE 59; TEMP 36.7; O2SAT 94
--- NOTE | 2017-09-21 19:30 | PULMONARY CONSULTATION ---
DATE OF CONSULTATION: 09/21/2017 REASON FOR CONSULTATION: Atypical chest pain/reactive airway disease. HISTORY OF PRESENT ILLNESS: This is an 82-year-old white male was seen in the remote past was admitted by Dr. Restrepo on 09/19/2017 at 2000 because of atypical chest pain and respiratory symptoms. He has a history of paroxysmal atrial fibrillation, obstructive sleep apnea, previous GI bleed with duodenal ulcers, esophageal stricture. He states he has been followed by several people in our clinic as well as by primary care at [facility]. Dr. Grimaldo evaluated the patient in June 2016. The patient has mild obstructive sleep apnea with transient nocturnal hypoxemia, CPAP in the past has not been tolerated. He has been on flecainide in the past for his atrial fibrillation. He denies symptoms of daytime fatigue or hypersomnolence. Dr. Robbins made the diagnosis of obstructive sleep apnea 7 years ago. He has been followed at the [facility]. His apnea and hypopnea index was 11. He has had a history of atypical chest pain that has been poorly characterized. The patient states he has been diagnosed with reactive airway disease and states that smokes and fragrances and odors as well as cold temperatures, eating cold food like ice cream or drinking anything cold will trigger his asthma. He states approximately a week prior to his admission on Friday that he was getting congested and was tried on 2 antibiotics the last being a Z-PACO without efficacy. CTA on admission when he presented to the ER showed no evidence of pulmonary thromboembolic disease or pneumonia. He apparently has been kept on a little liquid diet and has a video swallow scheduled for tomorrow. He has had upper GI workup in the past but never a video swallow. His atrial fib has been controlled on metoprolol and flecainide. He currently feels quite comfortable and is essentially asymptomatic with no further chest discomfort. He is receiving aerosolized bronchodilator in the form of DuoNeb, IV Solu-Medrol, Xanax and his flecainide and potassium have been continued. He is also on treatment for reflux with IV proton pump inhibitors. I have been asked to see the patient in consultation. PFTs in the remote past, specifically October 2014 were done and showed a normal FEV1/FVC ratio without a significant response to bronchodilator with lung volume measurement and diffusion capacity essentially within normal limits. PFTs have not been done since then. Review of the [facility] EMR does not reveal recent evaluation by anyone in our clinic. For details of past medical history, medications, family and social history, I refer you to current and past record. The patient does have a previous history of sinus infection according to Dr. Singleton who saw him 09/13/2017. PHYSICAL EXAMINATION: GENERAL: Well-developed soft spoken, white male in no obvious distress at rest. VITAL SIGNS: Temperature 36.6, pulse 64 and regular, respiratory rate 18, blood pressure 138/74 and O2 sat 97% on room air. SKIN: Without lesion. HEENT: Atraumatic, normocephalic. PERRLA. EOMI. Conjunctivae pink. Sclerae nonicteric. Fundi benign. Tympanic membranes within normal limits. Pharyngeal exam intact. NECK: Neck veins are not distended at 45 degrees. No adenopathy in the supra or infraclavicular areas. LUNGS: Relatively clear to P&A. CARDIAC: Regular rhythm. I do not appreciate a gallop. ABDOMEN: Soft, scaphoid. No evidence of hepatosplenomegaly. EXTREMITIES: No pedal edema, clubbing or cyanosis. NEUROLOGIC: Intact. No lateralizing signs. OVERALL ASSESSMENT: An 82-year-old with a history of paroxysmal atrial fibrillation and apparent reactive airway dysfunction syndrome according to the patient's history. He is absolutely unclear to me what has triggered this patient's symptoms that necessitated admission. His chest pain has resolved and appears to be atypical in nature. He related to me that he was told that there is a dark spot at the bottom of his left lung and he may have aspirated in the past. He does seem to have some difficulty with cough post-prandial especially when exposed to cold substances or foods. I have reviewed the CT scan of the chest and there may be some dependent ground-glass opacities suggesting atelectasis with some bronchial wall thickening, especially the left lower lobe. On auscultation I hear very little and I think if patient's atypical chest pain has resolved and his video swallow was normal, then I think he merits additional workup including more current PFTs and even a possible bronchoscopic evaluation if we cannot determine the nature of this patient's symptoms. We will follow along with you during this hospital stay and try to set up a followup as an outpatient.
[2017-09-21 23:38] VITALS: BP 109/60; PULSE 55; TEMP 36.6; O2SAT 92
[2017-09-22] MEDS: METHYLPREDNISOLONE IV 40 MG in SYRINGE 0 ML IV SCH ×2 (01:35→07:49)
[2017-09-22 06:56] VITALS: BP 113/65; PULSE 59; TEMP 36.5; O2SAT 92
[2017-09-22] MEDS: FLECAINIDE ACETATE 100 MG TAB PO SCH (07:50)
[2017-09-22] MEDS: FLUTICASONE PROPIONATE NA SPR 16 GM BTL SCH (07:51)
[2017-09-22] MEDS: PANTOprazole INJ 40 MG in SYRINGE 0 ML IV SCH (11:23)
[2017-09-22] MEDS ORDERED: ALBU18002 INH (11:50)
[2017-09-22] MEDS ORDERED: PRED10TA PO (11:50)
--- NOTE | 2017-09-22 11:51 | Discharge Instructions ---
Discharge Instructions Date of Service Sep 22, 2017. Admission Reason for Admission: Dysphagia, Shortness Of Breath Discharge Discharge Diagnosis / Problem: cough , possible posterior nasal discharge Discharge Goals Goal(s): Decrease discomfort Activity Recommendations Activity Limitations: resume your previous activity Lifting Limitations: none . Instructions / Follow-Up Instructions / Follow-Up follow up with gastroentrologist as an out patient within 2 weeks Current Hospital Diet Patient's current hospital diet: Gluten Free Diet, Low Lactose Diet Discharge Diet Recommended Diet: Low Sodium Diet (2gm Na) Pending Studies Studies pending at discharge: no Medical Emergencies . Who to Call and When: Medical Emergencies: If at any time you feel your situation is an emergency, please call 911 immediately. . Non-Emergent Contact Non-Emergency issues call your: Primary Care Provider . . "Provider Documentation" section prepared by Corazon Velazquez. . VTE Core Measure Inpt VTE Proph given/why not?: Unfractionated heparin SQ, SCD's
[2017-09-22 12:27] VITALS: BP 113/65; PULSE 59; TEMP 36.5; O2SAT 92
--- NOTE | 2017-09-22 13:00 | Discharge Summary ---
Discharge Summary Date of Service Sep 22, 2017. Discharge Summary Admission Date: Sep 19, 2017 at 21:44 Discharge Date: Sep 22, 2017 Discharge Disposition: Home Principal Diagnosis: cough secondary to posterior nasal discharge Problems/Secondary Diagnoses: LEO GI bleed duodenal ulcers, esophageal strictures Cough with wheezing possible bronchitis GERD PAF - sinus currently Immunizations: Have You Had Influenza Vaccine: No History of Tetanus Vaccine?: Yes History of Pneumococcal: Yes History of Hepatitis B Vaccine: No Medication Reconciliation New Medications: Albuterol Sulfate (Proair Respiclick) 108 Mcg/Act Aer 2 PUFF INH Q8 PRN for Shortness of Breath for 30 Days, #1 INHALER Prednisone Tab (Prednisone) 10 Mg Tab 10 MG PO DAILY for 4 Days, #4 TAB Continued Medications: Ascorbic Acid (Ascorbic Acid) 500 Mg Tab 500 MG PO TID, TAB B-Complex Vitamins (Vitamin B Complex) 1 Tab Tab 1 TAB PO BID Cholecalciferol (Thera-D 4000) 4,000 Unit Tab 4000 UNITS PO QAM Coenzyme Q10 (Ubidecarenone) (Coenzyme Q10) 100 Mg Tab 100 MG PO DAILY Flecainide (Tambocor) 50 Mg Tab 50 MG PO Q12 Metoprolol Succinate (Toprol Xl) 25 Mg Tabcr 12.5 MG PO HS Ranitidine (Zantac) 150 Mg Tab 150 MG PO BID PRN for Indigestion Saw [place] (Serenoa Repens) (Saw [place]) 160 Mg Tab 160 MG PO BID Tocopheryl Acet,Dl-Alpha (Vitamin E/Dl-Alpha) 400 Unit Cap 400 UNITS PO DAILY [Chloraphil Complex] () 1 DOSE PO BID Discharge Exam Review of Systems: Constitutional: No fever, No chills, No sweats, No weight loss, No weakness , No fatigue, No problem reported Eyes: No worsening of vision, No eye pain, No redness, No discharge, No diplopia, No problem reported ENT: No hearing loss, No unusual epistaxis, No nasal symptoms, No sore throat, No tinnitus, No dental problems, No trouble swallowing, No problem reported Respiratory: No cough, No sputum, No wheezing, No shortness of breath, No dyspnea on exertion, No dyspnea at rest, No hemoptysis, No problem reported Cardiovascular: No chest pain, No orthopnea, No PND, No edema, No claudication, No palpitations, No problem reported Abdomen: No pain, No nausea, No vomiting, No diarrhea, No constipation, No GI bleeding, No problem reported Musculoskeletal: No joint pain, No muscle pain, No swelling, No calf pain, No problem reported Genitourinary - Male: No hematuria, No dysuria, No urinary frequency, No urinary urgency, No urinary hesitancy, No urinary retention, No urinary incontinence, No penile discharge, No lesions, No impotence, No problem reported Neurologic: No memory loss, No paralysis, No weakness, No numbness/tingling , No vertigo, No balance problems, No problem reported Psychiatric: No depression symptoms, No anhedonism, No anxiety, No insomnia , No substance abuse, No problem reported Endocrine: No fatigue, No excessive thirst, No excessive urination, No problem reported Hematologic / Lymphatic: No abnormal bleeding/bruising, No clotting problems , No swollen lymph nodes, No night sweats, No problem reported Integumentary: No rash, No itch, No new/changing skin lesions, No color change, No bleeding, No problem reported Physical Exam: General Appearance: WD/WN, no apparent distress Eyes: normal inspection, EOMI ENT: normal ENT inspection, hearing grossly normal Neck: supple Respiratory/Chest: chest non-tender, lungs clear, normal breath sounds, no respiratory distress, no accessory muscle use Cardiovascular: regular rate, rhythm, no edema, no gallop, no JVD, no murmur Abdomen / GI: normal bowel sounds, non tender, soft, no organomegaly, no pulsatile mass Extremities: normal inspection, no calf tenderness, normal capillary refill , no pedal edema Neurologic/Psychiatric: locator II-XII nml as tested, no motor/sensory deficits , alert, normal mood/affect, normal reflexes, oriented x 3 Skin: normal color, warm/dry, no rash Hospital Course As per admitting physician: "82 y/o M Hx PAF, LEO, GI bleed, duodenal ulcers, esophageal strictures, LEO. Presents with SOB, wheezing, persistent cough and dysphagia for liquids. The pt states that his cough worsens after he eats and at night, disturbing his sleep. He has known esophageal stenosis but denies any difficulty swallowing solid food after undergoing EGD with dilation 04/16. He denies CP, N/V or fevers. " seen by GI , recommended PPI/H2 renetta and follow up as OP dysphagia improved started on steroids and bronchodilators , his cough improved Discussed with him being on a blood thinner for his A. 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 Instructed to use nasal wash 3-4 times a day. Patient said that he had a side effect from Combivent but he would like to stick with albuterol for now. His symptoms overall improved and he wants to follow-up with his primary care physician. Found to be within acceptable stability for discharge today Total Time Spent: Less than 30 minutes This includes examination of the patient, discharge planning, medication reconciliation, and communication with other providers. Discharge Instructions Please refer to the electronic Patient Visit Report (Discharge Instructions) for additional information.
[2017-09-22] MEDS ORDERED: OMEP20TA PO (13:01)
== END 2017-09-22 13:10 | disposition home or self-care (01) ==
LOC: C.EDB 17:31 → C.MS4W 21:44 → ENRESERV 21:59
PROVIDERS: ADMIT Internal Medicine; ATTEND Internal Medicine
DX: R05 Cough (principal); M19.90 Unspecified osteoarthritis, unspecified site; K26.9 Duodenal ulcer, unspecified as acute or chronic, without hemorrhage or perforation; K22.2 Esophageal obstruction; F41.9 Anxiety disorder, unspecified; I48.0 Paroxysmal atrial fibrillation; K21.9 Gastro-esophageal reflux disease without esophagitis; G47.33 Obstructive sleep apnea (adult) (pediatric); Z79.899 Other long term (current) drug therapy

== ENCOUNTER 2017-11-23 16:58 | Emergency (ER) | payer OTHER ==
[~2017-11-23] VITALS: Ht 170.2 cm; Wt 74.0 kg
[~2017-11-23 16:58] MED LIST changes: +ALBU18002 INH; -BENZ100C18 PO; -METO25TA3 PO; +METO25TA4 PO; +OMEP20TA PO; -PRED20TA PO; +RANI150T85 PO; -ZNTT/150 PO; +[UNRECOGNIZED DRUG - OTHER] PO
[2017-11-23 17:03] VITALS: TEMP 37; Ht 170.2 cm; Wt 74.0 kg
--- NOTE | 2017-11-23 17:59 | DIAGNOSTIC IMAGING REPORT ---
HEAD WITHOUT CONTRAST (CT) CLINICAL HISTORY: 82 years-old Male presenting with eval for bleed, fall, headache, laceration. TECHNIQUE: Multidetector CT imaging of the head was performed without the use of intravenous contrast. IV contrast: None. A dose lowering technique was used consistent with the principles of ALARA (as low as reasonably achievable). COMPARISON: 09/01/2011. CT DOSE (mGy.cm): The estimated cumulative dose is 569.73 mGy.cm. 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 Ventricles and sulci normal in size. Brain parenchyma normal in appearance with preserved mcclendon-white differentiation. No mass effect or midline shift. No hemorrhage or acute territorial infarct. No extra-axial fluid collection. Paranasal sinuses and mastoid air cells clear. Calvarium intact. IMPRESSION: 1. No acute intracranial abnormality. Electronically signed by: Carl Suh M.D. 11/23/2017 5:58 PM Dictated Date/Time: 11/23/2017 5:56 PM
[2017-11-23 18:11] VITALS: BP 140/70; PULSE 61; O2SAT 92
--- NOTE | 2017-11-23 18:23 | EMERGENCY ROOM VISIT NOTE ---
History Report prepared by Carol: Vinh Shafer Under the Supervision of: Dr. Harpreet Bridges M.D. First contact with patient: 17:16 Chief Complaint: HEAD INJURY (MINOR) Stated Complaint: LANDED ON LEFT SIDE OF HEAD- DIZZINESS, HURT EYE History of Present Illness The patient is an 82 year old male who presents to the Emergency Room with complaints of waxing and waning pain on the left side of his head that began following a traumatic fall at 0900 this morning, 8.5 hours ago. 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 He fell forward onto his left side and impacted the front left side of his head on the door. He had no LOC. He notes that he did feel "groggy" following the fall. The patient did not feel any injuries to the left side of his body other than the shoulder, and he has not vomited. He is not on any blood thinners. Source of History: patient Onset: 8.5 hours ago Position: head Quality: other (Head injury from fall) Timing: waxes/wanes Associated Symptoms: No vomiting Review of Systems See HPI for pertinent positives & negatives. A total of 10 systems reviewed and were otherwise negative. 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 Family History No significant family history Social History Smoking Status: Former Smoker Alcohol Use: none Drug Use: none Marital Status: Housing Status: lives with significant other Occupation Status: retired Current/Historical Medications Scheduled Ascorbic Acid (Ascorbic Acid), 500 MG PO TID B-Complex Vitamins (Vitamin B Complex), 1 TAB PO BID Cholecalciferol (Thera-D 4000), 4,000 UNITS PO EVERY THIRD DAY Coenzyme Q10 (Ubidecarenone) (Coenzyme Q10), 100 MG PO DAILY Flecainide (Tambocor), 50 MG PO Q12 Metoprolol Succinate (Toprol Xl), 12.5 MG PO HS Omeprazole (Omeprazole), 2 TAB PO DAILY Saw [place] (Serenoa Repens) (Saw [place]), 160 MG PO BID Tocopheryl Acet,Dl-Alpha (Vitamin E/Dl-Alpha), 400 UNITS PO DAILY Scheduled PRN Albuterol Sulfate (Proair Respiclick), 2 PUFF INH Q8 PRN for Shortness of Breath Ranitidine (Zantac), 150 MG PO BID PRN for Indigestion Allergies Coded Allergies: Codeine (Verified Allergy, Unknown, 09/17/17) Latex1 -Allergic Contact Dermititis (Verified Allergy, Unknown, WELTS, RASH, 09/17/17) Lactose. (Verified Adverse Reaction, Intermediate, GI SYMPTOMS, 09/19/17) Oxycodone (Verified Adverse Reaction, Intermediate, N/V, 09/19/17) Prednisone (Verified Adverse Reaction, Intermediate, "CAUSED THRUSH IN MOUTH"., 09/19/17) Wheat (Verified Adverse Reaction, Intermediate, GI SYMPTOMS, 09/19/17) Morphine (Verified Adverse Reaction, Unknown, DELIRIUM, 09/19/17) Penicillins (Verified Adverse Reaction, Unknown, DELIRIOUS, 09/19/17) Sulfa Antibiotics (Verified Adverse Reaction, Unknown, DELIRIUM, 09/19/17) Physical Exam Vital Signs Date Time Temp Pulse Resp B/P (MAP) Pulse Ox O2 Delivery O2 Flow Rate FiO2 11/23/17 18:11 61 14 140/70 92 Room Air 11/23/17 17:03 37.0 77 18 185/90 96 Room Air Physical Exam Constitutional: Vital signs reviewed. Eyes: Pupils are equal round reactive to light. Conjunctiva are noninjected. HEAD: There is a 1 cm very superficial laceration to the left forehead. ENT: Pharynx is clear without erythema or exudate. Mucous membranes are moist. Neck supple without meningeal signs. Respiratory: Clear to auscultation bilaterally. Breath sounds are equal bilaterally. Cardiovascular: Regular rate and rhythm. No rubs or gallops. GI: Soft, nondistended and nontender. Bowel sounds are present. Musculoskeletal: There is no cervical spine tenderness, no thoracic or lumbar sacral spine tenderness. There is very mild left anterior shoulder tenderness, no deformity. No clavicular tenderness. There is no hip tenderness. Integumentary: No cyanosis. Neurological: The patient is awake and alert. Cranial nerves II-XII are intact. Motor is 5 out of 5 all extremities. Sensation is intact to light touch all extremities. Normal speech. No pronator drift. Psychiatric: Normal affect. Medical Decision & Procedures ER Provider Diagnostic Interpretation: Radiology results as stated below per my review and the radiologist's interpretation: HEAD WITHOUT CONTRAST (CT) CLINICAL HISTORY: 82 years-old Male presenting with eval for bleed, fall, headache, laceration. TECHNIQUE: Multidetector CT imaging of the head was performed without the use of intravenous contrast. IV contrast: None. A dose lowering technique was used consistent with the principles of ALARA (as low as reasonably achievable). COMPARISON: 09/01/2011. CT DOSE (mGy.cm): The estimated cumulative dose is 569.73 mGy.cm. 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 Ventricles and sulci normal in size. Brain parenchyma normal in appearance with preserved mcclendon-white differentiation. No mass effect or midline shift. No hemorrhage or acute territorial infarct. No extra-axial fluid collection. Paranasal sinuses and mastoid air cells clear. Calvarium intact. IMPRESSION: 1. No acute intracranial abnormality. Electronically signed by: Carl Suh M.D. 11/23/2017 5:58 PM Dictated Date/Time: 11/23/2017 5:56 PM ED Course 1719: The patient was evaluated in room C8. A complete history and physical exam was performed. 181: I discussed the results of the patient's CT scans at this time. He declines a shoulder x-ray as the patient states it is not bothering him much. The patient will be discharged home. Medical Decision This is a 82-year-old male who presents with a head injury. Differential diagnosis includes contusion, concussion, skull fracture, intracranial hemorrhage, shoulder contusion. I did perform a limited focused review of portions of the patient's old chart on the electronic medical record. The patient was admitted to the hospital in September for bronchitis. I did evaluate the patient as noted above. The patient is presenting with a head injury from approximately and a half hours ago. He is having a headache at this time as was concerned about an acute intracranial hemorrhage. He also had some minor shoulder pain but did not wish to have an x-ray for this. He has a small laceration to his left forehead which is very superficial and his are already cleaned it. I did order a CT of the head. I did review the images myself as well as the radiology report as described above. There is no evidence of acute intracranial hemorrhage. I did discuss the test results with the patient. He was given head injury precautions and discharged in good condition. Head Trauma GCS Score: 15 Medication Reconcilliation Current Medication List: was personally reviewed by me Blood Pressure Screening Patient's blood pressure: Elevated blood pressure Blood pressure disposition: Referred to PCP Impression Primary Impression: Acute head injury Additional Impression: Forehead laceration Scribe Attestation The scribe's documentation has been prepared under my direct and personally reviewed by me in its entirety. I confirm that the note above accurately reflects all work, treatment, procedures, and medical decision making performed by me. Departure Information Dispostion Home / Self-Care Referrals Kal Godoen M.D. (PCP) Forms HOME CARE DOCUMENTATION FORM, IMPORTANT VISIT INFORMATION Patient Instructions My [facility] Additional Instructions You have been examined and treated today on an emergency basis only. This is not a substitute for, or an effort to provide, complete comprehensive medical care. It is impossible to recognize and treat all injuries or illnesses in a single emergency department visit. It is therefore important that you follow up closely with your physician. Call as soon as possible for an appointment. Return for worsening symptoms or if you develop fever, numbness or weakness on one side of your body, difficulties with your speech or walking, or any other concerning symptoms. Problem Qualifiers Primary Impression: Acute head injury Encounter type: initial encounter Qualified Codes: S09.90XA - Unspecified injury of head, initial encounter Additional Impression: Forehead laceration Encounter type: initial encounter Qualified Codes: S01.81XA - Laceration without foreign body of other part of head, initial encounter
== END 2017-11-23 18:21 | disposition home or self-care (01) ==
LOC: C.EDB 16:59 → C.EDC 18:21
DX: S01.81XA Laceration without foreign body of other part of head, initial encounter (principal); W01.198A Fall on same level from slipping, tripping and stumbling with subsequent striking against other object, initial encounter; R40.2412 Glasgow coma scale score 13-15, at arrival to emergency department; J45.909 Unspecified asthma, uncomplicated; I48.91 Unspecified atrial fibrillation; K21.9 Gastro-esophageal reflux disease without esophagitis; Z96.649 Presence of unspecified artificial hip joint; Z87.891 Personal history of nicotine dependence; E73.9 Lactose intolerance, unspecified; Z88.6 Allergy status to analgesic agent; Z91.040 Latex allergy status; Z88.1 Allergy status to other antibiotic agents; Z88.2 Allergy status to sulfonamides

== ENCOUNTER 2017-12-05 05:11 | Emergency (ER) | payer OTHER ==
[~2017-12-05] VITALS: Ht 170.2 cm; Wt 74.2 kg
[~2017-12-05 05:11] MED LIST changes: -METO25TA4 PO; -[UNRECOGNIZED DRUG - OTHER] PO
[2017-12-05 05:16] VITALS: Ht 170.2 cm; Wt 74.2 kg
--- NOTE | 2017-12-05 05:56 | EMERGENCY ROOM VISIT NOTE ---
History Report prepared by Carol: Donald Peter Under the Supervision of: Dr. Beatriz Purcell D.O. First contact with patient: 05:21 Chief Complaint: RESPIRATORY PROBLEMS Stated Complaint: LOW O2 LEVELS,HEART RATE HIGHER THAN NORMAL History of Present Illness The patient is an 82 year old male who presents to the Emergency Room with complaints of episodic general elevated heart rate since 0200 this morning. He states that he woke up at 0200 this morning with chills and elevated heart rate. He denies any sensation of skipping heart beats. He has a history of atrial fibrillation. He denies any blood thinner use. He takes Flecainide. He notes that he went to use the bathroom and his heart rate persisted, so he took half a dose of Metoprolol. His heart rate normalized 45 minutes later. He reports congestion and a cough, so he took 2 puffs of his inhaler. He notes the productive cough with white mucus and congestion began at 2300 last night. He denies any blood present in the mucus. He reports a runny nose at 2200 last night. He states that his heart rate increased again. He checked his oxygen saturation and recorded it at 84%. He states that he monitored it and noted that it increased to 90% with deep breaths, though it dropped again to 84%. He states that he was very cold. He notes lightheadedness associated with low oxygen level. He reports a history of low oxygen saturation one time in the past. He denies using at home oxygen or other breathing machines. He has a history of asthma. He denies any fevers, though reports hoarseness. He reports increased urination. He has a history of UTI. He reports similar symptoms to his past UTI. He has a history of acid reflux. He is a former smoker, though denies any history of COPD. He reports thyroid issues and takes thyroid medication. He notes decreased energy. He denies any sinus pain, sore throat, ear pain, diarrhea, or changes in his bowel movements. He regularly takes fish oil. Source of History: patient Onset: 0200 this morning Position: other (general) Quality: other (elevated heart rate) Timing: other (episodic ) Associated Symptoms: + chills, + cough, + urinary symptoms (frequent urination), No fevers, No sorethroat, No diarrhea Note: He notes runny nose, congestion, hoarseness, and lightheadedness. He denies any sinus pain, ear pain, or changes to his bowel movements. Review of Systems See HPI for pertinent positives & negatives. A total of 10 systems reviewed and were otherwise negative. 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 Family History No significant family history Social History Smoking Status: Former Smoker Alcohol Use: none Drug Use: none Marital Status: Housing Status: lives with significant other Occupation Status: retired Current/Historical Medications Scheduled Ascorbic Acid (Ascorbic Acid), 500 MG PO TID B-Complex Vitamins (Vitamin B Complex), 1 TAB PO BID Cholecalciferol (Thera-D 4000), 4,000 UNITS PO EVERY THIRD DAY Coenzyme Q10 (Ubidecarenone) (Coenzyme Q10), 100 MG PO DAILY Flecainide (Tambocor), 50 MG PO BID Metoprolol Succinate (Toprol Xl), 12.5 MG PO HS Omeprazole (Prilosec), 40 MG PO DAILY [place] ([place]) (S[place]), 160 MG PO BID Tocopheryl Acet,Dl-Alpha (Vitamin E/Dl-Alpha), 400 UNITS PO DAILY Scheduled PRN Albuterol Sulfate (Proair Respiclick), 2 PUFF INH Q8 PRN for Shortness of Breath Ranitidine (Zantac), 150 MG PO BID PRN for Indigestion Allergies Coded Allergies: Codeine (Verified Allergy, Unknown, 09/17/17) Latex1 -Allergic Contact Dermititis (Verified Allergy, Unknown, WELTS, RASH, 09/17/17) Lactose. (Verified Adverse Reaction, Intermediate, GI SYMPTOMS, 09/19/17) Oxycodone (Verified Adverse Reaction, Intermediate, N/V, 09/19/17) Prednisone (Verified Adverse Reaction, Intermediate, "CAUSED THRUSH IN MOUTH"., 09/19/17) Wheat (Verified Adverse Reaction, Intermediate, GI SYMPTOMS, 09/19/17) Morphine (Verified Adverse Reaction, Unknown, DELIRIUM, 09/19/17) Penicillins (Verified Adverse Reaction, Unknown, DELIRIOUS, 09/19/17) Sulfa Antibiotics (Verified Adverse Reaction, Unknown, DELIRIUM, 09/19/17) Physical Exam Vital Signs Date Time Temp Pulse Resp B/P (MAP) Pulse Ox O2 Delivery O2 Flow Rate FiO2 12/05/17 08:46 36.7 62 17 131/67 94 12/05/17 08:01 131/67 12/05/17 07:59 62 17 94 12/05/17 07:32 153/63 12/05/17 06:54 135/61 12/05/17 06:45 61 17 94 12/05/17 06:04 62 18 135/67 95 Room Air 12/05/17 06:01 98 Room Air 12/05/17 06:00 68 12/05/17 05:16 36.7 76 20 175/84 94 Room Air Physical Exam GENERAL: alert, well appearing, well nourished, no distress, non-toxic EYE EXAM: normal conjunctiva, PERRL and EOM's grossly intact OROPHARYNX: no exudate, no erythema, lips, buccal mucosa, and tongue normal and mucous membranes are moist NECK: supple, no nuchal rigidity, no adenopathy, non-tender LUNGS: Clear to auscultation. Normal chest wall mechanics. No wheezes, rhonchi, or rales. HEART: no murmurs, S1 normal and S2 normal ABDOMEN: abdomen soft, non-tender, normo-active bowel sounds, no masses, no rebound or guarding. BACK: Back is symmetrical on inspection and there is no deformity, no midline tenderness, no CVA tenderness. SKIN: no rashes and no bruising UPPER EXTREMITIES: upper extremities are grossly normal. FROM, nml pulses, no edema. LOWER EXTREMITIES: No pitting edema. FROM, nml pulses. NEURO EXAM: Normal sensorium, cranial nerves II-XII grossly intact, normal speech, no gross weakness of arms, no gross weakness of legs. Medical Decision & Procedures ER Provider Diagnostic Interpretation: X-ray: I interpreted the following studies. Chest: A two view study of the chest was reviewed and was negative for cardiomegaly, focal consolidation, pneumothorax, pulmonary edema, or wide mediastinum. Thyroid shield noted. [~ rep ct add3]] CHEST CTA for PULMONARY ARTERIES CT DOSE: 227.78 mGy.cm HISTORY: Atypical chest pain. Hypoxia. Tachycardia. TECHNIQUE: Multiaxial CT images of the chest were performed following the intravenous administration of contrast to evaluate the pulmonary arteries. Maximal intensity projection images were also obtained. A dose lowering technique was utilized adhering to the principles of ALARA. COMPARISON STUDY: Chest CTA 09/19/2017. FINDINGS: No pleural or pericardial effusions. The heart is normal in size. Mitral annulus calcifications are noted. No evidence for an aortic dissection or pulmonary embolus. Cholecystectomy. A few small hypodense lesions within the liver remain stable. These favor cysts. Stable 1.3 cm left adrenal gland nodule. No change in the near complete fatty replacement of the pancreas. Stable fullness within the left renal collecting system and right pelvic renal cysts. Bilateral gynecomastia. No mediastinal or hilar lymphadenopathy. Bibasilar linear densities consistent with subsegmental atelectasis. No pneumothorax. No suspicious lytic or blastic osseous lesions. No focal lung consolidations to suggest pneumonia. Mild bilateral lower lobe bronchial wall thickening, unchanged. IMPRESSION: 1. No evidence for pulmonary embolus. 2. No focal lung consolidations to suggest pneumonia. 3. Additional findings as described above with no significant change from the prior study. Electronically signed by: Lazaro Mendoza M.D. 12/05/2017 7:46 AM Dictated Date/Time: 12/05/2017 7:36 AM Laboratory Results 12/05/17 05:55 Red Blood Count 4.72, Mean Corpuscular Volume 93.2, Mean Corpuscular Hemoglobin 30.7, Mean Corpuscular Hemoglobin Concent 33.0, Mean Platelet Volume 11.1, Neutrophils (%) (Auto) 77.7, Lymphocytes (%) (Auto) 12.1, Monocytes (%) (Auto) 9.0, Eosinophils (%) (Auto) 1.0, Basophils (%) (Auto) 0.1, Neutrophils # (Auto) 5.52, Lymphocytes # (Auto) 0.86, Monocytes # (Auto) 0.64, Eosinophils # (Auto) 0.07, Basophils # (Auto) 0.01 12/05/17 05:55 Test 12/05/17 05:55 White Blood Count 7.11 K/uL (4.8-10.8) Red Blood Count 4.72 M/uL (4.7-6.1) Hemoglobin 14.5 g/dL (14.0-18.0) Hematocrit 44.0 % (42-52) Mean Corpuscular Volume 93.2 fL (80-100) Mean Corpuscular Hemoglobin 30.7 pg (25-34) Mean Corpuscular Hemoglobin Concent 33.0 g/dl (32-36) Platelet Count 138 K/uL (130-400) Mean Platelet Volume 11.1 fL (7.4-10.4) Neutrophils (%) (Auto) 77.7 % Lymphocytes (%) (Auto) 12.1 % Monocytes (%) (Auto) 9.0 % Eosinophils (%) (Auto) 1.0 % Basophils (%) (Auto) 0.1 % Neutrophils # (Auto) 5.52 K/uL (1.4-6.5) Lymphocytes # (Auto) 0.86 K/uL (1.2-3.4) Monocytes # (Auto) 0.64 K/uL (0.11-0.59) Eosinophils # (Auto) 0.07 K/uL (0-0.5) Basophils # (Auto) 0.01 K/uL (0-0.2) RDW Standard Deviation 46.8 fL (36.4-46.3) RDW Coefficient of Variation 13.7 % (11.5-14.5) Immature Granulocyte % (Auto) 0.1 % Immature Granulocyte # (Auto) 0.01 K/uL (0.00-0.02) Prothrombin Time 10.0 SECONDS (9.0-12.0) Prothromb Time International Ratio 1.0 (0.9-1.1) D-Dimer 770 ug/L FEU (0-500) Urine Color YELLOW Urine Appearance CLEAR (CLEAR) Urine pH 8.0 (4.5-7.5) Urine Specific [place] 1.015 (1.000-1.030) Urine Protein NEG (NEG) Urine Glucose (UA) NEG (NEG) Urine Ketones NEG (NEG) Urine Occult Blood NEG (NEG) Urine Nitrite NEG (NEG) Urine Bilirubin NEG (NEG) Urine Urobilinogen NEG (NEG) Urine Leukocyte Esterase NEG (NEG) Anion Gap 4.0 mmol/L (3-11) Est Creatinine Clear Calc Drug Dose 57.6 ml/min Estimated GFR () 87.8 Estimated GFR (Non- 75.7 BUN/Creatinine Ratio 25.2 (10-20) Calcium Level 9.5 mg/dl (8.5-10.1) Magnesium Level 2.4 mg/dl (1.8-2.4) Total Bilirubin 0.5 mg/dl (0.2-1) Aspartate Amino Transf (AST/SGOT) 23 U/L (15-37) Alanine Aminotransferase (ALT/SGPT) 26 U/L (12-78) Alkaline Phosphatase 55 U/L (45-117) Troponin I < 0.015 ng/ml (0-0.045) Pro-B-Type Natriuretic Peptide 279 pg/ml (0-1800) Total Protein 7.6 gm/dl (6.4-8.2) Albumin 3.9 gm/dl (3.4-5.0) Globulin 3.7 gm/dl (2.5-4.0) Albumin/Globulin Ratio 1.0 (0.9-2) Lipase 61 U/L (73-393) Laboratory results per my review. Medications Administered Medications (Trade) Dose Ordered Sig/Osvaldo Route Start Time Stop Time Status Last Admin Dose Admin Sodium Chloride 500 ml @ 999 mls/hr Q31M STAT IV 12/05/17 06:44 12/05/17 07:14 DC 12/05/17 07:35 999 MLS/HR ECG Per My Interpretation Indication: SOB/dyspnea Rate (beats per minute): 65 Rhythm: normal sinus Findings: no acute ischemic change, no ectopy, other (Normal axis. Normal intervals.) ED Course 0524: The patient was evaluated in room A11B. A complete history and physical exam was performed. 0637: I reassessed the patient at this time. No change. No recurrent tachycardia. No recurrent hypoxia. 0800: Patient updated on CAT scan results. No recurrent episodes here. 0825: Patient able to ambulate here without increased work of breathing, no hypoxia noted on pulse ox during ambulation and no reported distress or shortness of breath by the patient. Medical Decision Prior records/ancillary studies reviewed. Triage Nursing notes reviewed. The patient's history was concerning for respiratory difficulties. Differential diagnosis: Etiologies such as infections, reactive airway disease, pneumonia, pneumothorax , COPD, CHF, cardiac ischemia, pulmonary embolism, musculoskeletal, gastrointestinal, as well as others were entertained. Pt well appearing here throughout. No evidence of trouble breathing or dysrhythmia. No hypoxia at any time. No distress or hypoxia with ambulation. Labs and imaging reassuring. Likely pt's home pulse ox low due to peripheral vasoconstriction. I do not suspect occult infection, acs, chf, pe, dissection, acute arterial occlusion. No evidence of dysrhythmia on tele. Pt aware of all results. Discussed f/u with PCP, continued use of home meds, use of his inhaler , sx to watch/return for, he and verbalized understanding and were agreeable with plan. Medication Reconcilliation Current Medication List: was personally reviewed by me Blood Pressure Screening Patient's blood pressure: Elevated blood pressure Blood pressure disposition: Elevated BP felt to be situational Impression Primary Impression: Cough Scribe Attestation The scribe's documentation has been prepared under my direction and personally reviewed by me in its entirety. I confirm that the note above accurately reflects all work, treatment, procedures, and medical decision making performed by me. Departure Information Dispostion Home / Self-Care Referrals Kal Gooden M.D. (PCP) Patient Instructions My [facility] Additional Instructions Please continue your regular medications as prescribed. Please avoid any triggers for your asthma or allergies. Please call and follow-up with your family doctor to recheck your symptoms. If you have any further episodes of an increased heart rate you may follow the protocol previously given to you by your certified registered locksmith in taking additional metoprolol. If you feel any shortness of breath, have a persistent cough, develop chest pain, palpitations, racing heart, dizziness, weakness, numbness or tingling, vomiting, fevers, you have any other new concerns, please return the emergency room. Please use your inhaler as previously prescribed.
[2017-12-05 06:08] LABS: BASO % 0.1 %; BASO ABS # 0.01 K/uL (0-0.2); EOS ABS # 0.07 K/uL (0-0.5); HEMOGLOBIN 14.5 g/dL (14.0-18.0); IG# 0.01 K/uL (0.00-0.02); LYMPH % 12.1 %; LYMPH ABS # 0.86 K/uL (1.2-3.4); MEAN CELL VOLUME 93.2 fL (80-100); MEAN CORPUSCULAR HEMOGLOBIN 30.7 pg (25-34); MEAN PLATELET VOLUME 11.1 fL (7.4-10.4); MONO ABS # 0.64 K/uL (0.11-0.59); NEUT % 77.7 %; NEUT ABS # 5.52 K/uL (1.4-6.5); PLATELET COUNT 138 K/uL (130-400); RED CELL DISTRIBUTION WIDTH CV 13.7 % (11.5-14.5); RED CELL DISTRIBUTION WIDTH SD 46.8 fL (36.4-46.3); WHITE BLOOD COUNT 7.11 K/uL (4.8-10.8)
[2017-12-05 06:23] LABS: ALBUMIN 3.9 gm/dl (3.4-5.0); ALT/SGPT 26 U/L (12-78); BLOOD UREA NITROGEN 24 mg/dl (7-18); CALCIUM 9.5 mg/dl (8.5-10.1); CARBON DIOXIDE 32 mmol/L (21-32); CREATININE 0.94 mg/dl (0.60-1.40); GLUCOSE 100 mg/dl (70-99); POTASSIUM 3.7 mmol/L (3.5-5.1); SODIUM 139 mmol/L (136-145)
[2017-12-05 06:31] LABS: ALKALINE PHOSPHATASE 55 U/L (45-117); AST/SGOT 23 U/L (15-37); LIPASE 61 U/L (73-393); TOTAL PROTEIN 7.6 gm/dl (6.4-8.2)
[2017-12-05] MEDS ORDERED: SODIUM CHLORIDE 0.9% 500ML 500 ML IV STA (06:44)
--- NOTE | 2017-12-05 06:57 | DIAGNOSTIC IMAGING REPORT ---
CHEST 2 VIEWS ROUTINE CLINICAL HISTORY: Cough and shortness of breath. COMPARISON STUDY: Chest radiograph and chest CT September 19, 2017. FINDINGS: Lung apices are obscured by a thyroid shield. Lung volumes are normal. Lungs are clear. No pneumothorax or pleural effusion is noted. There is no evidence for pulmonary edema. Mitral annular calcification is noted. No consolidation. Cardiomediastinal silhouette is stable. There are cholecystectomy clips. IMPRESSION: No acute cardiopulmonary findings. Electronically signed by: Kulwinder Saab M.D. 12/05/2017 6:56 AM Dictated Date/Time: 12/05/2017 6:55 AM
[2017-12-05] MEDS ORDERED: OPTIRAY 320 IV PRN (07:00)
--- NOTE | 2017-12-05 07:47 | DIAGNOSTIC IMAGING REPORT ---
CHEST CTA for PULMONARY ARTERIES CT DOSE: 227.78 mGy.cm HISTORY: Atypical chest pain. Hypoxia. Tachycardia. TECHNIQUE: Multiaxial CT images of the chest were performed following the intravenous administration of contrast to evaluate the pulmonary arteries. Maximal intensity projection images were also obtained. A dose lowering technique was utilized adhering to the principles of ALARA. COMPARISON STUDY: Chest CTA 09/19/2017. FINDINGS: No pleural or pericardial effusions. The heart is normal in size. Mitral annulus calcifications are noted. No evidence for an aortic dissection or pulmonary embolus. Cholecystectomy. A few small hypodense lesions within the liver remain stable. These favor cysts. Stable 1.3 cm left adrenal gland nodule. No change in the near complete fatty replacement of the pancreas. Stable fullness within the left renal collecting system and right pelvic renal cysts. Bilateral gynecomastia. No mediastinal or hilar lymphadenopathy. Bibasilar linear densities consistent with subsegmental atelectasis. No pneumothorax. No suspicious lytic or blastic osseous lesions. No focal lung consolidations to suggest pneumonia. Mild bilateral lower lobe bronchial wall thickening, unchanged. IMPRESSION: 1. No evidence for pulmonary embolus. 2. No focal lung consolidations to suggest pneumonia. 3. Additional findings as described above with no significant change from the prior study. Electronically signed by: Lazaro Mendoza M.D. 12/05/2017 7:46 AM Dictated Date/Time: 12/05/2017 7:36 AM
[2017-12-05] MEDS ORDERED: PRLSR20 PO (07:51)
[2017-12-05 08:46] VITALS: BP 131/67; PULSE 62; TEMP 36.7; O2SAT 94
[2017-12-05] MEDS ORDERED: METO25TA4 PO (10:35)
== END 2017-12-05 08:40 | disposition home or self-care (01) ==
LOC: C.EDB 05:14 → C.EDA 08:40
DX: R05 Cough (principal); F41.9 Anxiety disorder, unspecified; J45.909 Unspecified asthma, uncomplicated; I48.91 Unspecified atrial fibrillation; K21.9 Gastro-esophageal reflux disease without esophagitis; Z87.891 Personal history of nicotine dependence; Z88.5 Allergy status to narcotic agent; Z91.040 Latex allergy status; Z91.011 Allergy to milk products; Z91.018 Allergy to other foods; Z88.0 Allergy status to penicillin; Z88.2 Allergy status to sulfonamides